=== PATIENT | female | born 2000 | race Caucasian/White ===

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

== ENCOUNTER 2019-04-09 12:37 | Outpatient (REF) | payer OTHER, SELFPAY ==
[2019-04-09 22:09] LABS: Mean Corp. HGB Concentration 31.6 g/dL (32.0-36.0); Mean Corpuscular Hemoglobin 27.8 pg (27.0-33.0); Mean Corpuscular Volume 88.2 fL (80-95); Mean Platelet Volume 10.1 fL (8.0-11.0); Platelet Count 427 x1000/uL (130-400); RBC 4.31 m/cumm (4.00-5.20); RBC Distribution Width 14.3 % (11.7-14.6); White Blood Cell Count 5.32 k/cumm (4.4-10.8)
[2019-04-09 22:34] LABS: ALT 39 U/L (14-59); AST 16 U/L (15-37); Albumin 3.3 g/dL (3.4-5.0); Alkaline Phosphatase 57 U/L (46-116); Anion Gap 10.5 mmol/L (3-11); BUN 11 mg/dL (7-18); Bilirubin, Total 0.3 mg/dL (0.2-1.0); CO2 25.5 mmol/L (21.0-32.0); CREATININE 0.64 mg/dL (0.55-1.02); Calcium 8.7 mg/dL (8.5-10.1); Chloride 105 mmol/L (98-107); Glucose 102 mg/dL (74-106); Magnesium 1.9 mg/dL (1.8-2.4); PHOSPHORUS 4.1 mg/dL (2.6-4.7); Potassium 3.7 mmol/L (3.5-5.1); Sodium 141 mmol/L (136-145); TSH (W/Ref FT4) 1.98 uIU/mL (0.52-4.13); Total Protein 7.2 g/dL (6.4-8.2)
[2019-04-09 23:12] LABS: Vitamin B12 338 pg/mL (193-986)
[2019-04-11 05:54] LABS: Vitamin D 25 Total 23.8 ng/ml (30-100)
== END 2019-04-09 12:57 ==
LOC: NCHCO 12:37
PROVIDERS: PCP Nurse Practitioner Family; Visit Provider Nurse Practitioner Family
DX: F43.21 Adjustment disorder with depressed mood (principal); R40.0 Somnolence; G47.20 Circadian rhythm sleep disorder, unspecified type; E66.01 Morbid (severe) obesity due to excess calories
CPT/HCPCS: 80053; 82306; 85027; 82607; 83735; 84100; 84443

== ENCOUNTER 2021-06-17 14:54 | Outpatient (REF) | payer BC, SELFPAY ==
--- NOTE | 2021-06-17 14:00 | PAPFT_PTH ---
PATIENT: Verónica Alonso LOC: [facility] U#:[id number] AGE/SX: 20/F ROOM: RE06/17/[address]: MICAH Lazaro : 2000 BED: DIS: 06/17/2021 SPEC #: [id number] RECD: 06/17/21 17:58 STATUS: GAURI REChele #: [id number] LYNNETTE: 06/17/21 14:[address]: Rachel Anguiano DEPT: [facility] Cytology RECD BY: Vanna Rivera ENTERED: 06/17/21 17:59 SP TYPE: PAPFT OTHR DR: aYw Hull Tissues: 1 - CX/ENDOCX FOR PAP SMEARS Procedures: PAP THIN PREP/UVM Screening Comments: [id number]
[2021-06-18 15:01] LABS: Chlamydia Result Negative (Negative); GC Result Negative (Negative)
== END 2021-06-17 14:55 | disposition home or self-care (01) ==
LOC: LBN 14:54
PROVIDERS: PCP Nurse Practitioner Family; Visit Provider Nurse Practitioner Family
DX: Z11.3 Encounter for screening for infections with a predominantly sexual mode of transmission (principal); Z12.4 Encounter for screening for malignant neoplasm of cervix
CPT/HCPCS: 87491; 87591; 88142

== ENCOUNTER 2021-09-20 18:40 | Emergency (ER) | payer BC, SELFPAY ==
[2021-09-20] VITALS (26 sets, daily range): BP systolic 111–146; BP diastolic 43–108; PULSE 70–115; RESP 11–27; TEMP 37.1; O2SAT 98–100
--- NOTE | 2021-09-20 18:45 | RT.EKG_ITS ---
APPROVED REPORT Exam: Resting ECG Reason for Exam: passed out Patient Location: E HR:93 bpm ECG Measurements Heart Rate 93 AXIS MO 178 P 63 QRSd 91 QRS 6 QT 352 T 20 QTc 439 Conclusion Sinus rhythm...normal P axis, V-rate 60- 99 Low voltage, precordial leads...precordial leads <1.0mV Physician: no stemi, no [id number]
--- NOTE | 2021-09-20 19:00 | ED.GENADUL_ITS ---
Discharge Plan Disposition Patient Disposition: HOME Condition: Good Discharge Details Clinical Impression: Syncope, Dehydration Primary Care Provider: Yaw Hull ED Provider: Iggy Tobin Home Meds and New Rx's Prescriptions: Continued paroxetine HCl 20 mg tablet 20 mg PO DAILY 0RF norgestimate-ethinyl estradiol [Sprintec (28)] 1 EACH tablet 1 tab-cap PO DAILY Qty: 1 6RF Discharge Instructions Instructions: Syncope (ED) Additional Instructions: At this time your work-up is returned very reassuring. There is no evidence of significant blood clots, cardiac abnormalities, electrolyte abnormalities, or other problems. Your thyroid function is normal. There is no signs of heart strain. Please make sure you are drinking plenty of fluid to stay well- hydrated. Respiratory therapy will contact you tomorrow to help set up an appointment for your Holter monitor. If you notice any worsening of your symptoms, or any new symptoms such as vomiting, diarrhea, fever, chills, shortness of breath, chest pain, numbness, weakness, or fainting , please return immediately to the emergency department for reevaluation. Please follow up with your primary care provider as soon as possible for reassessment and reevaluation. As always, it was a pleasure participating in your medical care today. Referrals: Yaw Hull, [employer] [Primary Care Provider] - Discharge Orders Other Ambulatory Orders: Holter Monitor (Routine) Timeframe: 1 Week Facility: [facility] - Location: Respiratory Therapy Ordered By: Iggy Tobin Medical Decision Making 21-year-old female with a past medical history of acne, BMI over 50, currently on control presents today for evaluation of syncope. Patient states that she was driving in her car, had an episode of a coughing fit, and then about 3 minutes later felt little dizzy (described as a room spinning sensation,) lightheaded, pulled off onto the side of the road, and then woke up about 5 minutes afterwards. She denies any significant headache, chest pain, shortness of breath, numbness, tingling, or weakness. She states that she has not felt normal after this, then went home. Later she did admit to feeling slightly lightheaded when she would stand up or move quickly. Currently the patient is asymptomatic. She states that she may have passed out in the past a few years ago, but otherwise there is no history of syncope. Denies PE risk factors such as recent long car rides, immobilization, recent surgery, prior history of DVT or PE, family history of PE or DVT, morbid obesity, and smoking, hemoptysis, history of cancer. She does admit to not drinking much throughout the day. No other complaints at this time. No other modifying factors. Physical exam demonstrates dry mucous membranes. Mild right-sided horizontal fatigable nystagmus. No neurologic deficits on exam otherwise though. Bedside echo demonstrates normal ejection fractions, no significant abnormalities. Symptoms at this time are most likely consistent with mild vertigo and likely a component of vasovagal syncope after coughing episode, however we will evaluate for other concerning cardiac etiologies. Patient does take oral contraceptives, we will get D-dimer to rule out, monitor closely and reassess. 9:32 PM Patient feeling much better on reassessment. Patient demonstrates a continued normal neurologic assessment. Laboratory work-up is normal. D-dimer normal, troponin normal, thyroid function normal. proBNP normal suggesting no signs of heart strain. No bandemia or left shift. Patient feels well. I suspect her symptoms are likely from a mild vasovagal event from mild dehydration and coughing, however out of an abundance of precaution we will place an order for an outpatient Holter monitor. EKG here tonight shows no evidence of WPW, epsilon wave, or other significant abnormality. Patient stable for discharge. Discussed red flags for which to return. I have extensively reviewed the treatment plan and discharge instructions with the patient and their family. I have addressed all patient concerns at this time. The patient and family was made aware of what symptoms to monitor for that would warrant a return to the emergency department. Discussed the plan with the patient and family, they demonstrate verbal understanding and agreement with our assessment and plan at this time. The documentation in this chart was dictated using [employer] dictation software. Please excuse any dictation errors. HPI General Date/Time Provider Initiated Documentation: 09/20/21 18:43 . HPI Narrative: 21-year-old female with a past medical history of acne, BMI over 50, currently on control presents today for evaluation of syncope. Patient states that she was driving in her car, had an episode of a coughing fit, and then about 3 minutes later felt little dizzy (described as a room spinning sensation,) lightheaded, pulled off onto the side of the road, and then woke up about 5 minutes afterwards. She denies any significant headache, chest pain, shortness of breath, numbness, tingling, or weakness. She states that she has not felt normal after this, then went home. Later she did admit to feeling slightly lightheaded when she would stand up or move quickly. Currently the patient is asymptomatic. She states that she may have passed out in the past a few years ago, but otherwise there is no history of syncope. Denies PE risk factors such as recent long car rides, immobilization, recent surgery, prior history of DVT or PE, family history of PE or DVT, morbid obesity, and smoking, hemoptysis, history of cancer. She does admit to not drinking much throughout the day. No other complaints at this time. No other modifying factors. Related Data Home Medications Medication Instructions Recorded Confirmed norgestimate 0.25 mg-ethinyl 1 tab-cap PO DAILY #1 pack 09/26/17 09/20/21 estradiol 35 mcg tablet (Sprintec (28)) paroxetine HCl 20 mg tablet 20 mg PO DAILY 06/17/21 09/20/21 Previous Rx's Medication Instructions Recorded norgestimate 0.25 mg-ethinyl 1 tab-cap PO DAILY #1 pack 09/26/17 estradiol 35 mcg tablet (Sprintec (28)) Allergies Allergy/AdvReac Type Severity Reaction Status Date / Time amoxicillin Allergy Intermediate drug rash Verified 09/20/21 19:20 General Stated Complaint: Dizzy/Sync MARY: 2 Review of Systems All systems reviewed & are unremarkable except as noted in HPI and below PFSH All Active Problems (Updated 09/20/21 @ 21:34 by Iggy Tobin DO) Syncope (Chronic) Dehydration (Acute) Fracture of metacarpal of right hand, closed (Acute) Severe obesity (BMI >= 40) (Acute 07/28/16) Wellness examination (Acute 11/26/12) Right knee pain (Acute 01/07/15) likely patellofemoral pain Myopia of both eyes with astigmatism (Acute 07/18/16) glasses per [place] Contraception (Acute 10/12/12) Childhood overweight, BMI 85-94.9 percentile (Acute 01/07/15) Medical History (Updated 09/20/21 @ 21:34 by Iggy Tobin DO) Acne 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 Mild unidirectional fatigable right-sided horizontal nystagmus. No vertical or rotatory nystagmus. Negative test of skew. 3.ENT: Atraumatic external nose and ears. Dry MM. Neck: Symmetric, trachea midline, No thyromegaly. 4.CVS: +S1/S2, No murmurs or gallops. Peripheral pulses 2+ and equal in all extremities. Brisk capillary refill in all extremities. 5.RESP: Unlabored respiratory effort. Clear to auscultation bilaterally. No wheezes rales or rhonchi 6.GI: Soft, Nontender/Nondistended, No hepatosplenomegaly. No guarding or rebound. 7.MSK: Normocephalic/Atraumatic, Extremities w/o deformity or ttp No cyanosis or clubbing, Normal movement of all extremities 8.Skin: Warm, Dry. No rashes or lesions. 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 Sensation grossly intact, no focal neurologic deficits. All 6 cardinal planes of vision are fully intact. No evidence of rotatory or vertical nystagmus. The patient demonstrated a normal fngzzo-qzfs-ztzpob, good dexterity. There was no evidence of dysdiadochokinesia. Patient was able to ambulate without difficulty. There was no wide-based gait. Romberg testing was normal. Crmj-hx-vlni testing was normal. Sensation was intact bilaterally as well as muscle strength bilaterally for all extremities. Patient was able to verbalize butter cup with no slurring, or miss pronunciation. 10.Psych: (AAO) x3. Appropriate mood and affect Course Vital Signs Vital signs: Vital Signs Temperature 37.1 C 09/20/21 18:50 Pulse 112 H 09/20/21 18:50 Respiratory Rate 20 09/20/21 18:50 Blood Pressure 146/100 H 09/20/21 18:50 Pulse Oximetry 100 09/20/21 18:50 Temperature 37.1 C 09/20/21 18:50 Temperature Source Temporal Artery Scan 09/20/21 18:50 Pulse 112 H 09/20/21 18:50 Respiratory Rate 20 09/20/21 18:50 Blood Pressure 146/100 H 09/20/21 18:50 Blood Pressure Position Supine 09/20/21 18:50 Pulse Oximetry 100 09/20/21 18:50 Oxygen Delivery Method Room Air 09/20/21 18:50 Oxygen Flow Rate 0 09/20/21 18:50 Pain Level 0 09/20/21 18:50
[2021-09-20] MEDS: Normal Saline 1,000 ML 1000 ML IV (19:14)
[2021-09-20 19:27] LABS: Abs Immature Grans 0.03 10^3/uL (0.0-0.06); Absolute Basophil Count 0.08 10^3/uL (0.0-0.2); Absolute Eosinophil Count 0.24 10^3/uL (0.0-0.7); Absolute Monocyte Count 0.92 10^3/uL (0.1-0.8); Basophils % 0.7; HCT 39.1 % (36.0-46.0); HGB 12.3 g/dL (11.2-15.7); Immature Grans % 0.3; Lymphocytes % 32.5; MCH 27.1 pg (27.0-33.0); MCHC 31.5 % (32.0-36.0); MCV 86 fL (80-95); MPV 10.1 fL (8.0-11.0); Monocytes % 7.8; Neutrophils % 56.7; Platelet Count 360 10^3/uL (130-400); RBC 4.54 10^6/uL (3.93-5.22); RDW 13.8 % (11.7-14.6); RDW-SD 43.3 fL; WBC 11.77 10^3/uL (4.4-10.8)
[2021-09-20 19:35] LABS: Absolute Lymphocyte Count 3.83 10^3/uL (1.2-3.4); Absolute Neutrophil Count 6.67 10^3/uL (1.2-6.7)
[2021-09-20 19:42] LABS: ALT 39 U/L (14-59); AST 17 U/L (15-37); Albumin 3.5 g/dL (3.4-5.0); Alkaline Phosphatase 60 U/L (46-116); Anion Gap 7.9 mmol/L (3-11); BUN 14 mg/dL (7-18); Bilirubin, Total 0.3 mg/dL (0.2-1.0); CO2 28.1 mmol/L (21.0-32.0); CREATININE 0.6 mg/dL (0.55-1.02); Calcium 8.7 mg/dL (8.5-10.1); Chloride 104 mmol/L (98-107); Glucose 95 mg/dL (74-106); NT-proBNP 49 pg/mL (<300); Potassium 3.7 mmol/L (3.5-5.1); Sodium 140 mmol/L (136-145); TSH (W/Ref FT4) 2.18 uIU/mL (0.36-3.74); Troponin I < 50 ng/L (<or=60)
[2021-09-20 20:04] LABS: D-Dimer 246 ng/mlFEU (<500)
== END 2021-09-20 21:56 | disposition home or self-care (01) ==
PROVIDERS: Emergency Provider Student in an Organized Health Care Education/Training Program; PCP Nurse Practitioner Family
DX: E86.0 Dehydration; R55 Syncope and collapse
CPT/HCPCS: 36415; 36416; 80053; 82962; 93005; 96360; 99284; 83880; 84443; 84484; 85025; 85379; 93010

== ENCOUNTER 2021-09-28 02:13 | Outpatient (RCR) | payer BC, SELFPAY ==
--- NOTE | 2021-09-28 13:30 | HOLTER_ITS ---
APPROVED REPORT Conclusion This is a 48-hour Holter monitor ordered for syncope Rhythm throughout was sinus with an average heart rate of 91. Minimum was 58, maximum 145 There were very rare isolated atrial and ventricular ectopic beats There was no atrial fibrillation, no high-grade AV block, no pauses greater than 3 seconds No patient symptoms were reported
== END 2021-10-19 23:59 | disposition home or self-care (01) ==
LOC: RT 02:13
PROVIDERS: PCP Nurse Practitioner Family; Visit Provider Student in an Organized Health Care Education/Training Program
DX: R55 Syncope and collapse (principal)
CPT/HCPCS: 93225; 93226

== ENCOUNTER 2022-05-18 14:02 | Outpatient (REF) | payer OTHER, SELFPAY ==
[2022-05-20 11:45] LABS: COVID-19 RT-PCR UVMMC Result Negative (Negative)
== END 2022-05-18 14:03 | disposition home or self-care (01) ==
LOC: LBN 14:02
PROVIDERS: Visit Provider Physician Assistant Medical
DX: J02.9 Acute pharyngitis, unspecified (principal); Z20.822 Contact with and (suspected) exposure to COVID-19
CPT/HCPCS: U0003; 87081

== ENCOUNTER 2022-08-24 11:48 | Outpatient (CLI) | payer OTHER, SELFPAY ==
[2022-08-24 12:29] LABS: Abs Immature Grans 0.02 10^3/uL (0.0-0.06); Absolute Basophil Count 0.03 10^3/uL (0.0-0.2); Absolute Lymphocyte Count 2.07 10^3/uL (1.2-3.4); Absolute Monocyte Count 0.78 10^3/uL (0.1-0.8); Absolute Neutrophil Count 3.28 10^3/uL (1.2-6.7); Basophils % 0.5; Eosinophils % 1.6; HCT 39.9 % (36.0-46.0); Immature Grans % 0.3; MCH 27.5 pg (27.0-33.0); MCHC 32.6 % (32.0-36.0); MCV 85 fL (80-95); MPV 9.7 fL (8.0-11.0); Monocytes % 12.4; Neutrophils % 52.2; Platelet Count 372 10^3/uL (130-400); RBC 4.72 10^6/uL (3.93-5.22); RDW-SD 43.4 fL; WBC 6.28 10^3/uL (4.4-10.8)
[2022-08-24 12:54] LABS: ALT 85 U/L (14-59); AST 51 U/L (15-37); Albumin 3.3 g/dL (3.4-5.0); Alkaline Phosphatase 59 U/L (46-116); Anion Gap 11.1 mmol/L (3-11); BUN 10 mg/dL (7-18); Bilirubin, Total 0.4 mg/dL (0.2-1.0); CO2 22.9 mmol/L (21.0-32.0); CREATININE 0.7 mg/dL (0.55-1.02); Calcium 8.7 mg/dL (8.5-10.1); Chloride 104 mmol/L (98-107); Estimated GFR 124.55 (mL/min/1.73m2); Glucose 102 mg/dL (74-106); Lipase 22 U/L (16-77); Potassium 3.1 mmol/L (3.5-5.1); Sodium 138 mmol/L (136-145); Total Protein 7.9 g/dL (6.4-8.2)
[2022-08-26 14:39] LABS: COVID-19 RT-PCR UVMMC Result Negative (Negative)
== END 2022-08-24 11:49 | disposition home or self-care (01) ==
LOC: LBO 11:52
PROVIDERS: Visit Provider Physician Assistant Medical
DX: R11.2 Nausea with vomiting, unspecified (principal); Z20.822 Contact with and (suspected) exposure to COVID-19
CPT/HCPCS: 36415; 80053; 83690; U0003; 85025

== ENCOUNTER 2022-09-30 14:54 | Outpatient (REF) | payer OTHER, SELFPAY ==
[2022-09-30 18:58] LABS: Abs Immature Grans 0.03 10^3/uL (0.0-0.06); Absolute Basophil Count 0.05 10^3/uL (0.0-0.2); Absolute Eosinophil Count 0.13 10^3/uL (0.0-0.7); Absolute Lymphocyte Count 2.55 10^3/uL (1.2-3.4); Absolute Neutrophil Count 6.91 10^3/uL (1.2-6.7); Basophils % 0.5; Eosinophils % 1.2; HCT 37.8 % (36.0-46.0); HGB 12.1 g/dL (11.2-15.7); Immature Grans % 0.3; Lymphocytes % 24.4; MCH 27.3 pg (27.0-33.0); MCV 85 fL (80-95); MPV 9.7 fL (8.0-11.0); Monocytes % 7.6; Platelet Count 379 10^3/uL (130-400); RBC 4.44 10^6/uL (3.93-5.22); RDW-SD 43.3 fL; WBC 10.47 10^3/uL (4.4-10.8)
[2022-09-30 19:32] LABS: Hemoglobin A1C 5.6 % (<5.7)
[2022-09-30 19:38] LABS: ALT 34 U/L (14-59); AST 17 U/L (15-37); Albumin 3.4 g/dL (3.4-5.0); Alkaline Phosphatase 62 U/L (46-116); Anion Gap 10.4 mmol/L (3-11); BUN 13 mg/dL (7-18); Bilirubin, Total 0.3 mg/dL (0.2-1.0); CO2 27.6 mmol/L (21.0-32.0); CREATININE 0.7 mg/dL (0.55-1.02); Calcium 8.7 mg/dL (8.5-10.1); Chloride 104 mmol/L (98-107); Estimated GFR 124.55 (mL/min/1.73m2); Glucose 109 mg/dL (74-106); Potassium 3.7 mmol/L (3.5-5.1); Sodium 142 mmol/L (136-145); TSH (W/Ref FT4) 1.93 uIU/mL (0.36-3.74); Total Protein 7.4 g/dL (6.4-8.2)
[2022-09-30 19:52] LABS: Vitamin D 25 Total 17.7 ng/mL (30-100)
== END 2022-09-30 14:55 | disposition home or self-care (01) ==
LOC: NCHCN 14:54
PROVIDERS: Visit Provider Nurse Practitioner Family
DX: R73.03 Prediabetes (principal); E66.8 Other obesity; Z68.44 Body mass index [BMI] 60.0-69.9, adult; F50.81 Binge eating disorder; F41.8 Other specified anxiety disorders; E55.9 Vitamin D deficiency, unspecified
CPT/HCPCS: 80053; 82306; 83036; 84443; 85025

== ENCOUNTER 2023-11-01 13:15 | Outpatient (REF) | payer OTHER, SELFPAY ==
[2023-11-01 15:27] LABS: Hemoglobin A1C 5.6 % (<5.7)
[2023-11-02 10:01] LABS: Hepatitis C Ab w Rflx HCV PCR Negative (Negative)
[2023-11-02 10:24] LABS: HIV-1/2 Ag & Ab Screen Negative (Negative)
[2023-11-02 11:12] LABS: Syphilis Serology (RPR) Negative (Negative)
== END 2023-11-01 13:16 | disposition home or self-care (01) ==
LOC: NCHCN 13:15
PROVIDERS: Visit Provider Nurse Practitioner Family
DX: R73.03 Prediabetes (principal); Z11.3 Encounter for screening for infections with a predominantly sexual mode of transmission; Z11.4 Encounter for screening for human immunodeficiency virus [HIV]; Z11.59 Encounter for screening for other viral diseases
CPT/HCPCS: 86803; 87389; 83036; 86592

== ENCOUNTER 2023-11-06 15:09 | Outpatient (REF) | payer OTHER, SELFPAY ==
[2023-11-07 13:15] LABS: Chlamydia Result Negative (Negative); GC Result Negative (Negative)
== END 2023-11-06 15:10 | disposition home or self-care (01) ==
LOC: NCHCN 15:09
PROVIDERS: Visit Provider Nurse Practitioner Family
DX: Z11.3 Encounter for screening for infections with a predominantly sexual mode of transmission (principal)
CPT/HCPCS: 87491; 87591

== ENCOUNTER 2023-11-29 09:09 | Outpatient (REF) | payer OTHER, SELFPAY ==
[2023-11-30 12:47] LABS: Chlamydia Result Negative (Negative); GC Result Negative (Negative)
== END 2023-11-29 09:10 | disposition home or self-care (01) ==
LOC: LBN 09:09
PROVIDERS: Visit Provider Nurse Practitioner Women's Health
DX: Z11.3 Encounter for screening for infections with a predominantly sexual mode of transmission (principal)
CPT/HCPCS: 87491; 87591

== ENCOUNTER 2024-03-06 18:18 | Emergency (ER) | payer OTHER, SELFPAY ==
[2024-03-06 18:19] VITALS: BP 139/86; PULSE 118; RESP 20; TEMP 36.3; O2SAT 98
--- NOTE | 2024-03-06 18:30 | DI.CT_ITS ---
Exam(s) CT ABDOMEN PELVIS W EXAM: CT ABDOMEN PELVIS W CLINICAL HISTORY: exquisite lower abdominal pain TECHNIQUE: Imaging Protocol: Axial computed tomography images with coronal and sagittal reformatted images were created and reviewed. CONTRAST MATERIAL: Intravenous: Omnipaque 350 Contrast volume:100 mL Oral: No COMPARISON: US US ABDOMEN from 08/25/2022 FINDINGS: Examination limited by patient body habitus. ABDOMEN: Lung Bases: Normal where visualized. Liver: There is decreased attenuation of the liver suggesting fatty infiltration. No measurable mass . Portal, Superior Mesenteric, and Splenic Veins: Unremarkable. Gallbladder and Biliary Tract: No radiodense calculus or dilation. Pancreas: Normal density, no abnormal calcifications or inflammatory process. Spleen: Normal. Adrenals: No masses seen. Kidneys: Normal size, contour and axis. No radiodense stones or obstructive uropathy. No masses seen. Abdominal Aorta: Abdominal portion non-dilated. 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 Bowel: No obstruction or bowel wall thickening. The proximal appendix is visualized and is of normal caliber. No evidence of appendicitis. Peritoneal Cavity: There is a trace amount of free fluid in the cul-de-sac which may be physiologic. No focal fluid collection is seen. There is also small amount of fluid in the right adnexa. No ermelinda e air. Lymph Nodes: Within normal limits. Bones: Within normal limits for the patient's age. Soft Tissues: There is a small fat containing umbilical hernia. PELVIS: Bladder: Symmetric distention, no gross wall thickening. Reproductive Organs: There is an IUD within the uterus. Lymph Nodes: Within normal limits. Bones: Within normal limits for the patient's age. IMPRESSION: 1. Small amount of free fluid in the pelvis and right adnexa. This may be physiologic. If there is clinical concern, a pelvic ultrasound should be obtained. 2. Examination is limited by patient body habitus. 3. The visualized portion of the appendix is visualized and is unremarkable. RADIATION DOSE DELIVERED: 1,972.89mGy.cm Total DLP DATA REPOSITORY: All CT scans at this facility are submitted to the National Radiology Data Registry (NRDR) Dose Index Registry (DIR) with the [employer] (ACR). RADIATION OPTIMIZATION: All CT scans at this facility use at least one of these dose optimization te chniques: automated exposure control; mA and/or kV adjustment per patient size (includes targeted exa ms where dose is matched to clinical indication); or iterative reconstruction.
--- NOTE | 2024-03-06 18:31 | ED.GENADUL_ITS ---
Discharge Plan Disposition Patient Disposition: Home Condition: Stable Discharge Details Clinical Impression: Urinary tract infection Primary Care Provider: Unknown,Unknown ED Provider: Iggy Boothe Home Meds and New Rx's Prescriptions: New cephalexin 500 mg capsule 500 mg PO QID 10 Days Qty: 40 0RF Continued Mirena 21 mcg/24 hr (8 yrs) 52 mg intrauterine device 1 device intrauterine ONCE Rx Instructions: as a single dose lisdexamfetamine [Vyvanse] 10 mg capsule 10 mg PO DAILY Discharge Instructions Instructions: Cephalexin, Urinary Tract Infection, Adult ED Additional Instructions: You were seen in the emergency department for your lower abdominal pain while getting up to go to the bathroom earlier today, your labs are all reassuring for no severe signs of infection or organ dysfunction, your kidney function is normal. There were some nitrites in your urine which is a tell-tale sign of urinary tract infection. I gave you home with doses of the antibiotic to start tonight, and sent a prescription to treat UTI. Please take as directed. Your CT has a lot of interference due to your size but saw no acute pathology- no sign of appendicitis, diverticulitis, small bowel obstruction, kidney stone, or large ovarian cyst. Please use therapeutic dosing of Tylenol (acetamenophen) & Advil (ibuprofen) in an alternating fashion as follows: Take 1000mg of Tylenol every 6 hours without missing doses- that is 4 times per day. [place] in between the Tylenol dosings, take 400-600mg of Advil also on a 6 hour schedule, that is also 4 times per day. The daily maximum dosing of Tylenol is 4000mg, and the daily maximum dosing of Advil is 2400mg. This is safe to do for weeks. Please note that some common cold medications & prescription pain medications may contain acetamenophen and you need to read OTC drug labels and factor that in to maximum daily dosings. Please return for severe increase in pain especially with fever, intractable nausea or vomiting,*changes to your urine or bowel habits or any other emergent concern. Discharge Data Discharge Date/Time-TO BE ENTERED AT DEPARTURE: 03/06/24 22:33 HPI General Date/Time Provider Initiated Documentation: 03/06/24 18:31 . HPI Narrative: 23 year-old female presents to ED today by POV/ambulating with her father with a chief complaint of lower abdominal pain while urinating today- denies dysuria, endorses severe lower abdominal cramping, felt dizzy from pain- states it hurts to stand, sit, walk with onset this afternoon. Quality described as sharp stabbing pain, no radiation to hematuria, bowel changes, chest pain, shortness of breath, nausea/vomiting, endorses having an IUD, denies possibility of , states no history of renal stones, states poor appetite today. Severity is described as 02/28. Palliating factors include nothing specific attempted. Provoking factors include nothing specific. Patient not anticoagulated. Related Data Home Medications ?Medication ?Instructions ?Recorded ?Confirmed levonorgestrel 21 mcg/24 hr (up to 1 device intrauterine ONCE 01/25/24 03/06/24 8 years) 52 mg intrauterine device (Mirena) cephalexin 500 mg capsule 500 mg PO QID UTI 10 days #40 caps 03/06/24 lisdexamfetamine 10 mg capsule 10 mg PO DAILY 03/06/24 03/06/24 (Vyvanse) Previous Rx's ?Medication ?Instructions ?Recorded cephalexin 500 mg capsule 500 mg PO QID UTI 10 days #40 caps 03/06/24 Allergies Allergy/AdvReac Type Severity Reaction Status Date / Time amoxicillin Allergy Intermediate drug rash Verified 03/06/24 18:23 General Stated Complaint: Abd Prob MARY: 3 Review of Systems All systems reviewed & are unremarkable except as noted in HPI and below Exam Narrative Exam Narrative: GENERAL APPEARANCE: Morbid obesity, non-toxic, awake and alert, atraumatic, no acute distress. SKIN: Warm, pink, dry, intact, without rashes/lesions/ulcerations. HEAD: Normocephalic, atraumatic, normal hair distribution for gender/age. EYES: Normal conjunctiva, no exudates on lids/lashes. ENT: Nares patent, no circumoral cyanosis, no facial swelling NECK: Supple, trachea midline, painless cervical ROM. LUNGS/CHEST: Non-labored respirations, normal A/P diameter, symmetrical expansion, no chest wall deformity HEART (CV/PV): Regular rate, R radial pulse 2+, no peripheral edema, no JVD. ABDOMEN: Soft, non-distended, no guarding,diffuse lower abdominal tenderness m ost focal in the suprapubic region, states worse in RLQ versus LLQ, no severe epigastric or upper abdominal tenderness, no CVA tenderness to percussion bilaterally. MSK: Normal ROM, no swelling/deformity to bilateral UEs or LEs, moving all extremities without weakness, no cyanosis, spine midline without tenderness, normal curvature. NEURO: Mental Status AAOx4 - alert to person, place, time, events No facial droop, no forehead involvement. Motor: No focal weakness - strength 5/5 in bilateral UEs and LEs, proximal and distal, symmetric. Sensory: sensation intact to light touch globally. Gait normal: patient ambulated without ataxia into ED room. PSYCH: euthymic, cooperative, pleasant, appropriate speech Course Vital Signs Vital signs: Vital Signs Temperature 36.3 C L 03/06/24 18:19 Pulse 118 H 03/06/24 18:19 Respiratory Rate 20 03/06/24 18:19 Blood Pressure 139/86 03/06/24 18:19 Pulse Oximetry 98 03/06/24 18:19 Temperature 36.3 C L 03/06/24 18:19 Pulse 118 H 03/06/24 18:19 Respiratory Rate 20 03/06/24 18:19 Respiratory Effort Normal 03/06/24 18:24 Blood Pressure 139/86 03/06/24 18:19 Pulse Oximetry 98 03/06/24 18:19 Pain Level 5 03/06/24 18:19 Medical Decision Making This dictation utilizes [id number] dictation software and may contain unedited grammatical errors. 23 year-old female presents to ED today by POV/ambulating with her father with a chief complaint of lower abdominal pain while urinating today- denies dysuria, endorses severe lower abdominal cramping, felt dizzy from pain- states it hurts to stand, sit, walk with onset this afternoon. Quality described as sharp stabbing pain, no radiation to hematuria, bowel changes, chest pain, shortness of breath, nausea/vomiting, endorses having an IUD, denies possibility of , states no history of renal stones, states poor appetite today. Severity is described as 10/10. Palliating factors include nothing specific attempted. Provoking factors include nothing specific. Patients' medical history: Morbid obesity, IUD in place, history of cellulitis of the labia. Fam bhavin and social history: [ ]. Pertinent exam findings / vital signs include diffuse lower abdominal tenderness most focal in the suprapubic region, states worse in RLQ versus LLQ, no severe epigastric or upper abdominal tenderness, benign cardiopulmonary status, no CVA tenderness to percussion bilaterally. Differential / pathologies of concern include IUD migration, endometriosis, PCOS or ovarian cyst pathology, less likely PID, diverticulitis, appendicitis, UTI. Diagnostic studies of: -CBC, CMP, lactate, procalcitonin, lipase, UA, CT ABD/Pelvis w Contrast. -CBC shows no leukocytosis and no anemia -CMP shows no actionable abnormality -Lactate negative, procalcitonin negative-do not suspect sepsis -Lipase negative -UA shows nitrites, will treat for empiric UTI -CT shows no acute pathology, does not visualize the R ovary due to artifact - i question a 2.5cm R ovarian cyst, and there was some scant free fluid seen in the pelvis. Not concerning for possible torsion and patients exam markedly improved with Tylenol and toradol Interventions of: -Tylenol, toradol, Zofran, outpatient Rx for cephalexin. ED Course/Assessment/Plan: 23-year-old female seen in the emergency department had lower abdominal pain when attempting to toilet earlier today, rates the pain as severe but fully improved with Tylenol and Toradol. CT scan has heavy artifact from her body habitus but no overt emergent pathology seen, her labs are very reassuring that there is no perforated viscus or sepsis or biliary tree pathology, on my read I do question a small right ovarian cyst but heavily obscured by artifact, does not have any signs concerning for torsion and her exam is certainly not indicative of torsion. Her urine shows positive for nitrites so I will treat empirically for UTI but I stressed strict return criteria for any worsening or emergent concerns as there is significant artifact in her CT scan, the patient engaged in shared decision-making and was comfortable with this disposition. I question an element of abdominal wall muscle strain with the patients pain being worse with movement. Urine Culture was sent as there was nitrites, pending at discharge. Findings not consistent with perforated viscus, peritoneal abdomen, sepsis, biliary tree pathology, renal dysfunction. Disposition of Urinary Tract Infection. Patient verbalized understanding of the plan and return to ED criteria and engaged in shared decision making. Medical Records Medical records reviewed: Yes I reviewed the patient's medical records. Imaging Data Radiologic Study: Attestation: I personally reviewed and interpreted this imaging study as follows: Imaging: CT Scan Lab Data Lab results reviewed: Yes I reviewed the patient's lab results. Labs: 03/06/24 21:30 Urine - Clean Catch Urine Culture - Pending Laboratory Tests Range/Units 03/06/24 03/06/24 20:18 21:30 WBC (4.4-10.8) 10^3/uL 9.32 RBC (3.93-5.22) 10^6/uL 4.45 Hgb (11.2-15.7) g/dL 12.1 Hct (36.0-46.0) % 38.0 MCV (80-95) fL 85 MCH (27.0-33.0) pg 27.2 MCHC (32.0-36.0) % 31.8 L RDW (11.7-14.6) % 14.5 Plt Count (130-400) 10^3/uL 331 MPV (8.0-11.0) fL 9.6 Immature Gran % % 0.4 Neutrophils % % 59.9 Lymphocytes % % 28.6 Monocytes % % 9.0 Eosinophils % % 1.6 Basophils % % 0.5 Nucleated RBC % (0.0-0.3) % 0.0 Absolute Neutrophils (1.2-6.7) 10^3/uL 5.57 Absolute Lymphocytes (1.2-3.4) 10^3/uL 2.67 Absolute Monocytes (0.1-0.8) 10^3/uL 0.84 H Absolute Eosinophils (0.0-0.7) 10^3/uL 0.15 Absolute Basophils (0.0-0.2) 10^3/uL 0.05 VBG Lactate (0.6-1.4) mmol/L 1.1 Sodium (136-145) mmol/L 140 Potassium (3.5-5.1) mmol/L 4.4 Chloride (98-107) mmol/L 107 Carbon Dioxide (21.0-32.0) mmol/L 24.9 Anion Gap (3-11) mmol/L 8.1 BUN (7-18) mg/dL 9 Creatinine (0.55-1.02) mg/dL 0.6 Est GFR (CKD-EPI 2020) (mL/min/1.73m2) 128.46 Glucose (74-106) mg/dL 88 Calcium (8.5-10.1) mg/dL 8.5 Total Bilirubin (0.2-1.0) mg/dL 0.52 AST (15-37) U/L 34 ALT (14-59) U/L 37 Alkaline Phosphatase (46-116) U/L 60 Total Protein (6.4-8.2) g/dL 7.3 Albumin (3.4-5.0) g/dL 2.9 L Lipase (16-77) U/L 22 Procalcitonin ng/mL < 0.1 Urine Color (Yellow) Yellow Urine Clarity (Clear) Clear Urine pH (5-8) 6.0 Ur Specific [place] (1.005-1.025) 1.025 Urine Protein (Neg-Trace) mg/dL Negative Urine Ketones (Negative) mg/dL Negative Urine Blood (Negative) Negative Urine Nitrite (Negative) Positive H Urine Bilirubin (Negative) Negative Urine Urobilinogen (Up to 0.2) mg/dL 0.2 Ur Leukocyte Esterase (Negative) Negative Urine RBC (0-2) HPF 0-2 Urine WBC (0-5) HPF 3-5 Ur Epithelial Cells (Negative) HPF Few Urine Crystals (Negative) HPF Negative Urine Bacteria (Negative) HPF Many Urine Casts (Negative) LPF Negative Urine Mucus (Negative) Negative Ur Culture Indicated? No Urine Glucose (Negative) mg/dL Negative Quality:SDOH Health Related Social Needs: No Data to Display PFSH All Active Problems (Updated 03/06/24 @ 22:05 by LAVONNE Powers) Urinary tract infection (Acute) IUD (intrauterine device) in place (Acute) Cellulitis of labia (Acute) Fracture of metacarpal of right hand, closed (Acute) Severe obesity (BMI >= 40) (Acute 07/28/16) Wellness examination (Acute 11/26/12) Right knee pain (Acute 01/07/15) likely patellofemoral pain Myopia of both eyes with astigmatism (Acute 07/18/16) glasses per [place] Contraception (Acute 10/12/12) 11/2023. Mirena IUD. 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 Right knee pain Acne Family History Mother Asthma Mental disorder Anxiety Father Mental disorder Depression Other Personal history of malignant neoplasm MGGM- breast CA Grandparent Substance abuse Essential hypertension Hyperlipidemia Mental disorder Asthma Other Healthy adult Social History Smoking/Tobacco Use Status: Current-Occasional Tobacco Type: cigars and e- cigarettes Smoking risk assessment performed?: Yes Alcohol Intake: current Alcohol Intake frequency: holidays/special occasions only Drug use: Rarely Substance use type: marijuana Adopted: No Household members: family and other Details: Parents an dbrother Housing: house current occupation: [employer] in [place]: [employer] Pets and animals: Yes Pets and animals: cat(s) and dog(s) Sexually active: Yes Current gender identity: female Do you feel safe at home: Yes Do you feel safe in your relationship?: Yes Female Reproductive History Menstrual control method: pills History History 0 Para Hx # Term Pregnancies Multiple births Hx # Pregnancies Ectopic pregnancies AB induced Hx Number of Living Children AB spontaneous
--- OUTSIDE RECORDS SUMMARY | 2024-03-06 18:44 | XMS_ITS | Encounter Summary ---
Author Organization [place] [address] Care Team Providers Care L D Rn Name Role Phone Clive Simpson MD Primary Care Provider [phone] Reason for Visit * Reason Comments Weight Management Encounter Details Date Type Department Care Team (Late st Contact Info) Description 01/31/2017 9:15 AM EDT Office Visit Weight and Wellness at [address] [phone] Armando Cárdenas MD [address] [place] [address] [place] [address] Insulin resistance; Abdominal obesity; BMI (body mass index) pediatric, > 99% for age, obese child, tertiary care intervention Social History Tobacco Use Types Packs/Day Years Used Date Smoking Tobacco: Never Sex and Gender Information Value Date Recorded Sex Assigned at Not on file Gender Identity Not on file Sexual Orientation Not on file documented as of this encounter Last Filed Vital Signs Vital Sign Reading Time Taken Comments Blood Pressure 112/74 01/31/2017 9:43 AM EDT Pulse 86 01/31/2017 9:43 AM EDT Temperature - - Respiratory Rate 16 01/31/2017 9:43 AM EDT Oxygen Saturation 100% 01/31/2017 9:43 AM EDT Inhaled Oxygen Concentration - - Weight 151.7 kg (334 lb 7 oz) 01/31/2017 9:43 AM EDT Height 165.9 cm (5' 5.32) 01/31/2017 9:43 AM ED T Body Mass Index 55.12 01/31/2017 9:43 AM EDT Body Mass Index Percentile 100.00% 01/31/2017 9:4 3 AM EDT Growth Chart: CDC (Girls, 2- 20 Years) documented in this encounter Patient Instructions * Patient Instructions* Wilian Montoya, RN - 01/31/2017 9:15 AM EDT [facility] Thank you for participating in the [facility]. The goal of the [facility] clinic is to help children and their families to attain a healthy weight through healthy eating and regular exercise. We will work to treat any medical issues identified for your child. General goals to work on as a family: Aim for 5210 and My Plate (below) recommendations Pick several areas to work on - start small and work up to your final goals Specific goals set today: Media / Activity: Check out the new family media planning tool at the [employer] https://healthychildren.org/Indian/media/pages/default.aspx Diet: Other issues addressed today: Verónica Alonso is at risk for complications of elevated BMI including diabetes, fatty liver and metabolic syndrome.The primarily treatment approach is lifestyle modification to optimize diet and physical activity. We have recommended participation in our intensive lifestyle program along with ongoing medical management. Laboratories have been ordered: No orders of the defined types were placed in this encounter. Measurements taken today: Vitals: 01/31/17 0943 BP: 112/74 Pulse: 86 Resp: 16 SpO2: 100% Weight: (!) 151.7 kg (334 lb 7 oz) Height: 165.9 cm (5' 5.32) >99 %ile based on CDC 2-20 Years BMI-for-age data using vitals from 01/31/2017. BP Readings from Last 3 Encounters: 01/31/17 112/74 10/25/16 123/56 09/27/16 (!) 144/99 Blood pressure percentiles are 48 % systolic and 75 % diastolic based on NHBPEP's 4th Report. Bloodpressure percentile targets: 90: 126/81, 95: 130/85, 99 + 5 mmH/97. Thank you for allowing us to participate in your child's care. We look forward to seeing you and Verónica at our next visit. Gallo Kevin MD MPH Armando Cárdenas MD Co-Directors, [facility], [place] [facility] Obesity Medicine Certified Wilian Montoya RN Registered Nurse documented in this encounter Progress Notes * Armando Cárdenas MD - 01/31/2017 9:15 AM EDT Lipid and Weight Management Program at [facility] Progress note: Patient Active Problem List Diagnosis Code ??? Increased body mass index (BMI) R63.8 ??? Menorrhalgia N94.6 ??? Insulin resistance E88.81 ? ? BMI (body mass index) pediatric, > 99% for age, obese child, tertiary care intervention Z68.54 ??? Childhood obesity, BMI 95-100 percentile E66.9, Z68.54 ??? Sedentary lifestyle Z91.89 ??? Abdominal obesity E65 History: Verónica's last visit was in September. Activity: she has been working in a [employer] - on her feet - 20 hours a week. More walking on weekends. Nutrition changes: no more ice tea, soda. No more late night eating Verónica has no complaints. Outpatient Prescriptions Marked as Taking for the 01/31/17 encounter (Office Visit) with Armando Cárdenas MD Medication Sig Dispense Refill ??? norgestimate-ethinyl estradiol (SPRINTEC-28) 0.25-35 mg-mcg Tablet Take 1 tablet by mouth daily. Indications: Contraception Social history: Here with her mother as informant. Review of systems: The remainder of the 10 point review of systems was negative Physical examination: Well appearing, no distress. Blood pressure 112/74, pulse 86, resp. rate 16, height 165.9 cm (5' 5.32), weight (!) 151.7 kg (334 lb 7 oz), SpO2 100 %. >99 %ile based on CDC 2-20 Years [id number] data using vitals from 01/31/2017. 67 %ile based on CDC 2-20 Years [id number] data using vitals from 01/31/2017. Body mass index is 55.12 kg/(m^2). >99 %ile based on CDC 2-20 Years BMI-for-age data using vitals from 01/31/2017. Blood pressure percentiles are 48 % systolic and 75 % diastolic based on NHBPEP's 4th Report. Bloodpressure percentile targets: 90: 126/81, 95: 130/85, 99 + 5 mmH/97. Lab Results Component Value Date CHLPL 161 09/27/2016 Lab Results Component Value Date HDL 60 09/27/2016 Lab Results Component Value Date LDLCHOL 66 09/27/2016 Lab Results Component Value Date TRIG 174 09/27/2016 Lab Results Component Value Date HA1C 5.4 09/27/2016 No results found for: GLUCFASTING Lab Results Component Value Date ALT 21 09/27/2016 Impression: 1. Insulin resistance 2. Abdominal obesity 3. BMI (body mass index) pediatric, > 99% for age, obese child, tertiary care intervention Wt Readings from Last 3 Encounters: 01/31/17 (!) 151.7 kg (334 lb 7 oz) (>99 %)* 10/25/16 (!) 155.6 kg (343 lb 0.6 oz) (>99 %)* 09/27/16 (!) 155.7 kg (343 lb 4.1 oz) (>99 %)* * Growth percentiles are based on CDC 2-20 Years data. Verónica has made good progress with 9 lbs of weight loss. BMI is down. Overall better food choices. More active in general. PLAN: Continue working to improve food choices and serving size. Try and increase intensity of physical activity. Will obtain fasting labs prior to next visit: No orders of the defined types were placed in this encounter. Follow up in 3 month. This was predominantly a counselling dominated encounter of 25 minutes of which 20 minutes were spent in counseling patient/parents on nutrition, exercise, laboratories and plan. documented in this encounter Plan of Treatment Not on file documented as of this encounter Visit Diagnoses Diagnosis Insulin resistance Dysmetabolic Syndrome X Abdominal obesity Localized adiposity BMI (body mass index) pediatric, > 99% for age, obese child, tertiary care intervention Body Mass Index, pediatric, greater than or equal to 95th percentile for age documented in this encounter Care Teams L D Rn Relationship Specialty Start Date End Date Clive Simpson MD [address] [place] [address] PCP - General Pediatrics 09/27/16 10/04/21 documented as of this encounter
--- OUTSIDE RECORDS SUMMARY | 2024-03-06 18:44 | XMS_ITS | Encounter Summary ---
Author Organization [facility] [place] [address] Care Team Providers Care Accounts Receivable Clerk Name Role Phone Viv Pedraza APRN Primary Care Provider [phone] Encounter Details Date Type Department Care Team (Latest Contact Info) Description 01/09/2023 Travel Social History Tobacco Use Types Packs/Day Years Used Date Smoking Tobacco: Never Sex and Gender Information Value Date Recorded Sex Assigned at Not on file Gender Identity Not on file Sexual Orientation Not on file documented as of this encounter Plan of Treatment Not on file documented as of this encounter Visit Diagnoses Not on filedocumented in this encounter Care Teams Accounts Receivable Clerk Relationship Specialty Start Date End Date Viv Pedra[place] [address] [place] [address] PCP - General Family Medicine 12/22/22 documented as of this encounter
--- OUTSIDE RECORDS SUMMARY | 2024-03-06 18:44 | XMS_ITS | Clinical Summary ---
Author Organization [facility] Address [address] [place] [address] Care Team Providers Care Director Of Front Office Name Role Phone Unavailable Primary Care Provider Unavailabl e Social History Tobacco Use Types Packs/Day Years Used Date Smoking Tobacco: Never Assessed Sex and Gender Information Value Date Recorded Sex Assigned at Not on file Gender Identity Not on file Sexual Orientation Not on file Plan of Treatment Health Maintenance Due Date Last Done Comments Hepatitis B Vaccine (1 of 3 - 19+ 3-dose series) 07/13 COVID-19 Vaccine (2022- season) 2023 Hepatitis C Screen Completed 11/01/2023 Procedures Procedure Name Priority Date/Time Associated Diagnosis Comments HEPATITIS C AB W REFLEX TO HCV RNA BY PCR Routine 11/01/2023 11:15 EDT from Last 3 Months or Most Recently Relevant to Health Maintenance Results * HEPATITIS C AB W REFLEX TO HCV RNA BY PCR (11/01/2023 11:15 EDT) Hep C Antibody Negative Negative 11/02/2023 9:57 EDT [facility] Blood VENOUS BLOOD / Unknown 11/01/2023 11:15 EDT 11/01/2023 21:17 EDT Provider Outr Resulting Lab CHEMISTRY & BLOOD GAS ORDERABLES [facility] [address] [place] [address] from Last 3 Months or Most Recently Relevant to Health Maintenance
--- OUTSIDE RECORDS SUMMARY | 2024-03-06 18:44 | XMS_ITS | Clinical Summary ---
Author Organization [facility] Address [address] [facility] [address] Care Team Providers Care Wire Drawing Machine Operator Name Role Phone Viv Pedraza APRN Primary Care Provider [phone] Allergies Active Allergy Reactions Criticality Noted Date Comments Amoxicillin Rash High 09/27/2016 Full body rash. Medications Medication Sig Dispensed Refills Start Date End Date Status norgestimate-ethinyl estradiol (SPRINTEC-28) 0.25-35 mg-mcg TabletIndications:pr egnancy contraception Take 1 tablet by mouth daily. Indications: Contraception Active Active Problems Problem Noted Date Diagnosed Date Insulin resistance 09/27/2016 BMI (body mass index) pediat franchesca, > 99% for age, obese child, tertiary care intervention 09/27/2016 Childhood obesity, BMI 95-100 percentile 017 Sedentary lifestyle 09/27/2016 Abdominal obesity 09/27/2016 Increased body mass index (BMI) 01/07/2015 Menorrhalgia Family History Medical History Relation Comments Polycystic Ovarian Syndrome Maternal Aunt Hyperlipidemia Maternal Grandfather Thyroid Disease Maternal Grandmother Obesity Mother Coronary Artery Disease Paternal Grandfather Cirrhosis Neg Hx Nonalcoholic Liver Disease Neg Hx Pre-diabetes Neg Hx Type 2 Diabetes Neg Hx Relation Status Comments Maternal Aunt Maternal Grandfather Maternal Grandmother Mother Paternal Grandfather Social History Tobacco Use Types Packs/Day Years Used Date Smoking Tobacco: Never Sex and Gender Information Value Date Recorded Sex Assigned at Not on file Gender Identity Not on file Sexual Orientation Not on file Last Filed Vital Signs Vital Sign Reading [...] Mass Index 55.12 01/31/2017 9:43 AM EDT Plan of Treatment Health Maintenance Due Date Last Done Comments Chlamydia Screening 2014 HPV vaccine (1 - 3-dose series) 2014 HIV screen 2017 Hepatitis C Screening 2017 Hepatitis B vaccine (0-59 yrs) (1) 2018 Tetanus/Diphtheria/Pertussis Vaccines (1 - Tdap) 07/13 PAP Smear 2020 Covid-19 Vaccine (1 - 2022- season) 2024 Influenza (Flu) vaccine (1 o f 1 - Influenza standard series) 01/21/2024 Lipid Screening Discontinued 09/27/2016 Procedures Procedure Name Priority Date/Time Associated Diagnosis Comments LIPID PANEL (REFLEX DIRECT LDL) Routine 09/27/2016 12:37 PM EDT Insulin resistance Abdominal obesity BMI (body mass index) pediatric, > 99% for age, obese child, tertiary care intervention Childhood obesity, BMI 95-100 percentile Sedentary lifestyle from Last 3 Months or Most Recently Relevant to Health Maintenance Results * Lipid Panel (09/27/2016 12:37 PM EDT) Cholesterol, Total 161 <=239 mg/dL [facility] Triglyceride 174 <=199 mg/dL [facility] HDL Cholesterol 60 >=40 mg/dL [facility] LDL Cholesterol 66 <=190 mg/dL [facility] Cholesterol/HDL Ratio 2.7 ratio [facility] Lipid Interpretation See Note [facility] Comment: Lipid management should be guided by a patient? s ASCVD risk, goals and preferences. ACC/AHA Guidelines recommend high intensity statin if clinical ASCVD or LDL greater than or equal to 190 mg/dL. http://tinyurl.com/VED-FDV-Rcbadipit Adults aged 40-75 with LDL 70-189 mg/dL should have their 10 year ASCVD risk estimated with the ACC/AHA ASCVD risk body shop estimator http://tools.acc.org/PLEGB-Fdbu-Dqgdaybyb/ Statin should be discussed if risk greater than or equal to 7.5% in non-diabetics. With diabetes, moderate intensity statin is recommended if risk less than 7.5%, high intensity if risk greater than or equal to 7.5%. Annual lipid monitoring on statins is not necessary. Evaluate secondary causes of Triglycerides greater than 500 mg/dL or LDL greater than 190 mg/dL: See table 6 of ACC/AHA Guideline. Lifestyle modification is a critical component of ASCVD risk reduction. Blood specimen (specimen) 09/27/2016 12:37 PM EDT 09/27/2016 3:28 PM EDT Narrative Resulting Agency Comment Spec In Lab Armando Cárdenas MD CHEMISTRY ORDERABLES Performing Organization Address City/State/[facility] Co de Phone Number [facility] [place] [address] from Last 3 Months or Most Recently Relevant to Health Maintenance Care Teams Wire Drawing Machine Operator Relationship Specialty Start Date End Date Viv Pedraza [place] [place] [address] PCP - General Family Medicine 12/22/22
--- OUTSIDE RECORDS SUMMARY | 2024-03-06 18:44 | XMS_ITS | Encounter Summary ---
Author Organization [facility] Address [address] [place] [address] Care Team Providers Care Car Ferrier Name Role Phone Unavailable Primary Care Provider Unavailabl e Encounter Details Date Type Department Care Team (Late st Contact Info) Description 11/01/2023 Lab Requisition [facility] Pathology & Laboratory Medicine - [facility] [address] [place] [address] Outr Resulting Lab, Provider Social History Tobacco Use Types Packs/Day Years Used Date Smoking Tobacco: Never Assessed Sex and Gender Information Value Date Recorded Sex Assigned at Not on file Gender Identity Not on file Sexual Orientation Not on file documented as of this encounter Plan of Treatment Not on file documented as of this encounter Procedures Procedure Name Priority Date/Time Associated Diagnosis Comments SYPHILIS SEROLOGY Routine 11/01/2023 11: 15 EDT HEPATITIS C AB W REFLEX TO HCV RNA BY PCR Routine 11/01/2023 11:15 EDT documented in this encounter Results * SYPHILIS SEROLOGY (11/01/2023 11:15 EDT) Syphilis Serology Negative Negative 11/02/2023 11:07 EDT [facility] Blood VENOUS BLOOD / Unknown 11/01/2023 11:15 EDT 11/01/2023 21:17 EDT Provider Outr Resulting Lab IMMUNOLOGY A ND SEROLOGY ORDERABLES [facility] [address] [place], [place] [address] * HEPATITIS C AB W REFLEX TO HCV RNA BY PCR (11/01/2023 11:15 EDT) Hep C Antibody Negative Negative 11/02/2023 9:57 EDT [facility] Blood VENOUS BLOOD / Unknown 11/01/2023 11:15 EDT 11/01/2023 21:17 EDT Provider Outr Resulting Lab CHEMISTRY & BLOOD GAS ORDERABLES [facility] [address] [place], [place] [id number] documented in this encounter Visit Diagnoses Not on filedocumented in this encounter
--- OUTSIDE RECORDS SUMMARY | 2024-03-06 18:44 | XMS_ITS | Encounter Summary ---
Author Organization [facility] [place] [address] Care Team Providers Care Special Deputy Sheriff Name Role Phone Clive Simpson MD Primary Care Provider [phone] Reason for Visit * Reason Onset Date Comments Referral 08/29/2016 Encounter Details Date Type Department Care Team (Late st Contact Info) Description 08/29/2016 Telephone Weight and Wellness at [address] [phone] Gallo Kevin MD [facility] [place] [address] Referral Social History Tobacco Use Types Packs/Day Years Used Date Smoking Tobacco: Never Assessed Sex and Gender Information Value Date Recorded Sex Assigned at Not on file Gender Identity Not on file Sexual Orientation Not on file documented as of this encounter Miscellaneous Notes * Telephone Encounter - Gallo Kevin MD - 09/15/2016 8:48 PM EDT [facility] Referral Note Name: Verónica Alonso MR: [id number] : 2000 Age: 16 y.o. 2 m.o. PCP:Clive Forrester MD (Inactive) CREDENTIALING ASSISTANT:No primary care provider on file. Note to scheduling: [ ] scanned labs available for review DiIAGNOSIS / CONCERN: SCHEDULING- PROVIDER: [ ] Hyperlipidemia without elevated BMI: [ ] Melia [ ] Andressa [ ] Either [x ] Elevated BMI +/- comorbidities: [ ] Melia [ ] Kevin [x ] Either Additional information: Hi Donavan - PCP note indicates labs were done in 2013 - could we get these faxed and entered thanks! * Telephone Encounter - Tanner Juan - 08/29/2016 8:58 AM EDT Family is waiting to have blood work done until meeting with a specialist. documented in this encounter Plan of Treatment Not on file documented as of this encounter Visit Diagnoses Not on filedocumented in this encounter Care Teams Special Deputy Sheriff Relationship Specialty Start Date End Date Clive Simpson MD [address] [address] PCP - General Pediatrics 09/27/16 10/04/21 documented as of this encounter
--- OUTSIDE RECORDS SUMMARY | 2024-03-06 18:44 | XMS_ITS | Encounter Summary ---
Author Organization [facility] Address [address] [place] [address] Care Team Providers Care Dispensing Operator Name Role Phone Unavailable Primary Care Provider Unavailabl e Encounter Details Date Type Department Care Team (Late st Contact Info) Description 08/25/2022 Lab Requisition [facility] Pathology & Laboratory Medicine - [facility] [address] [place] [address] Outr Resulting Lab, Provider Social History Tobacco [...] Procedure Name Priority Date/Time Associated Diagnosis Comments ZZCOVID-19 TEST [facility] PCR Today 08/24/2022 11:15 EDT COVID-19 TESTING Routine 08/24/2022 11:1 5 EDT documented in this encounter Results * COVID-19 TEST [facility] PCR (08/24/2022 11:15 EDT) Swab ENTIRE NASOPHARYNX / Unknown 08/24/2022 11:15 EDT 08/25/2022 17:18 EDT Provider Outr Resulting Lab MICROBIOLOGY - GENERAL ORDERABLES [facility] [address] [place] [address] * COVID-19 TESTING (08/24/2022 11:15 EDT) COVID-19 rt-PCR Result Negative Negative 08/26/2022 14:33 EDT [facility] Comment: This test has not been FDA cleared or approved. This test has been authorized by FDA under an EUA for use by authorized laboratories. This test has been authorized only for detection of nucleic acid from 2019-nCoV, not for any other viruses or pathogens. This test is only authorized for the duration of the declaration that circumstances exist justifying the authorization of emergency use of in vitro diagnostic tests for detection and/or diagnosis of 2019-nCoV under section 564(b)(1) of Act, 21 U.S.C ?? 360bbb-3(b) (1), unless the authorization is terminated or revoked sooner. Negative results do not preclude 2019-nCoV infection and should not be used as the sole basis for treatment or other patient management decisions. Negative results must be combined with clinical observations, patient history, and epidemiological information. Performed on the [employer] Fusion instrument Performing Lab [place] [facility] 08/26/2022 14:33 EDT [facility] Swab ENTIRE NASOPHARYNX / Unknown 08/24/2022 11:15 EDT 08/25/2022 17:18 EDT Provider Outr Resulting Lab MICROBIOLOGY - GENERAL ORDERABLES [facility] [address] [place] [address] documented in this encounter Visit Diagnoses Not on filedocumented in this encounter
--- OUTSIDE RECORDS SUMMARY | 2024-03-06 18:44 | XMS_ITS | Encounter Summary ---
Author Organization [facility] Address [address] [place] [address] Care Team Providers Care Post Tensioning Ironworker Helper Name Role Phone Unavailable Primary Care Provider Unavailabl e Encounter Details Date Type Department Care Team (Late st Contact Info) Description 11/06/2023 Lab Requisition [facility] Pathology & Laboratory Medicine - [address] [address] Outr Resulting Lab, Provider Social History Tobacco [...] Procedure Name Priority Date/Time Associated Diagnosis Comments CHLAMYDIA/N. GONORRHOEAE AMPLIFIED NUCLEIC ACID Routine 11/06/2023 11:00 EDT documented in this encounter Results * CHLAMYDIA/N. GONORRHOEAE AMPLIFIED RNA (11/06/2023 11:00 EDT) Neisseria gonorrhoeae Result Negative Negative 11/07/2023 13:10 EDT [facility] Chlamydia trachomatis Result Negative Negative 11/07/2023 13:10 EDT [facility] Urine URINE / Unknown 11/06/2023 1 1:00 EDT 11/06/2023 22:09 EDT Narrative [facility] - 11/07/2023 13:10 EDT A first catch urine specimen is acceptable for detection of Gonorrhea and Chlamydia, but might detect up to 10% fewer infections when compared with vaginal and endocervical swab samples. Provider Outr Resulting Lab MICROBIOLOGY - GENERAL ORDERABLES [facility] [address] [place] [address] documented in this encounter Visit Diagnoses Not on filedocumented in this encounter
--- OUTSIDE RECORDS SUMMARY | 2024-03-06 18:44 | XMS_ITS | Encounter Summary ---
[facility] [place] [address] Care Team Providers Care Pump Runner Name Role Phone Clive Simpson MD Primary Care Provider [phone] Encounter Details Date Type Department Care Team (Late st Contact Info) Description 10/25/2016 10:30 AM EDT - 10/25/2016 11:59 PM EDT Hospital [place] [phone] Armando Cárdenas MD [address] [place] [address] [place] [address] Insulin resistance; Abdominal obesity; BMI (body mass index) pediatric, > 99% for age, obese child, tertiary care intervention; Childhood obesity, BMI 95-100 percentile; Sedentary lifestyle Discharge Disposition: Home Social History Tobacco Use Types Packs/Day Years Used Date Smoking Tobacco: Never Sex and Gender Information Value Date Recorded Sex Assigned at Not on file Gender Identity Not on file Sexual Orientation Not on file documented as of this encounter Medications at Time of Discharge Medication Sig Dispensed Refills Start Date End Date norgestimate-ethinyl estradiol (SPRINTEC-28) 0.25-35 mg-mcg TabletIndications:pregna ncy contraception Take 1 tablet by mouth daily. Indications: Contraception documented as of this encounter Plan of Treatment Not on file documented as of this encounter Procedures Procedure Name Priority Date/Time Associated Diagnosis Comments US ABDOMEN COMPLETE Routine 10/25/2016 1 1:11 AM EDT Insulin resistance Abdominal obesity BMI (body mass index) pediatric, > 99% for age, obese child, tertiary care intervention Childhood obesity, BMI 95-100 percentile Sedentary lifestyle documented in this encounter Results * US Abdomen Complete (10/25/2016 11:11 AM EDT) Anatomical Region Laterality Modality Abdomen, Vascular Ultrasound 10/25/2016 10:3 2 AM EDT Impressions 10/25/2016 11:25 AM EDT ??1. Diffusely increased echotexture to the liver. No focal lesions seen. Findingsconsistent with diffuse fatty infiltration of the liver.2. Otherwise normal appearing abdominal ultrasound. Small splenule is notedwithin the hilum of the spleen.3. Normal caliber abdominal aorta and IVC. ? Quita Hamilton MD Electronically Signed Final Report ?? 10/25/2016 11:24 am Narrative 10/25/2016 11:25 AM EDT Pediatric Abdomen ? (Signed Final 10/25/2016 11:24 am) PATIENT INFO: ID #: ? [id number] ?: ??[birth year] (16 yrs) Name: ? VERÓNICA OGDEN ? Visit Date: 10/25/2016 10:32 am PERFORMED BY: Performed By: ? Sakina Spence RDMS Attending: ?Alfonso HOGAN, Quita Moreno. Referred By: ?ARMANDO CÁRDENAS Location: ? [place] SERVICE(S) PROVIDED: ??[facility] - Abdominal Complete Survey - [id number] INDICATIONS: ??fatty liver Scan Quality: ?? Limited due to patient body habitus ------ LIVER: ------ Right Lobe Length: ?? 16.0 ?? cm Echogenicity/Echotexture: ?? Echogenic GALLBLADDER: Cholelithiasis: ?No stones visualized Wall Thickness: ?2.8 mm Focal Tenderness: ?Negative Stovall's sign BILIARY TRACT: Intrahepatic Ducts: ?? Normal Extrahepatic Ducts: ?? Normal Common Duct Size: ? 5.0 ? mm --------- PANCREAS: --------- Head: ? Limited views due to overlying bowel Tail: ? Poorly visualized due to overlying bowel Body: ? Limited visualization due to overlying ? bowel ------- SPLEEN: ------- Size (cm) ?L: ??11.4 ?AP: ??3.7 ? TV: ??3.4 Vol (ml): ?75.1 Comment: ?Normal appearance RIGHT KIDNEY: ??Date ? L(cm) ?AP(cm) ?TV(cm) ?Vol ??10/25/16 ? 12.6 Hydronephrosis: ?? No sonographic evidence LEFT KIDNEY: ??Date ? L(cm) ?AP(cm) ?TV(cm) ?Vol ??10/25/16 ? 13.5 Hydronephrosis: ?? No sonographic evidence ------ AORTA: ------ Measurements (cm): Proximal ? AP: ?? 1.9 Mid ?AP: ?? 1.9 Distal ? AP: ?? 1.9 Comment: ?Normal in caliber where visualized ---- IVC: ---- Normal in caliber where visualized Procedure Note Quita Hamilton MD - 10/25/2016 Pediatric Abdomen (Signed Final 10/25/2016 11:24 am) PATIENT INFO: ID #: [id number] : [birth year] (16 yrs) Name: VERÓNICA OGDEN Visit Date: 10/25/2016 10:32 am PERFORMED BY: Performed By: Sakina Spence RDMS Attending: Quita Hamilton MD Referred By: ARMANDO CÁRDENAS Location: [place] SERVICE(S) PROVIDED: [facility] - Abdominal Complete Survey - [id number] INDICATIONS: fatty liver Scan Quality: Limited due to patient body habitus ------ LIVER: ------ Right Lobe Length: 16.0 cm Echogenicity/Echotexture: Echogenic GALLBLADDER: Cholelithiasis: No stones visualized Wall Thickness: 2.8 mm Focal Tenderness: Negative Stovall's sign BILIARY TRACT: Intrahepatic Ducts: Normal Extrahepatic Ducts: Normal Common Duct Size: 5.0 mm --------- PANCREAS: --------- Head: Limited views due to overlying bowel Tail: Poorly visualized due to overlying bowel Body: Limited visualization due to overlying bowel ------- SPLEEN: ------- Size (cm) L: 11.4 AP: 3.7 TV: 3.4 Vol (ml): 75.1 Comment: Normal appearance RIGHT KIDNEY: Date L(cm) AP(cm) TV(cm) Vol 10/25/16 12.6 Hydronephrosis: No sonographic evidence LEFT KIDNEY: Date L(cm) AP(cm) TV(cm) Vol 10/25/16 13.5 Hydronephrosis: No sonographic evidence ------ AORTA: ------ Measurements (cm): Proximal AP: 1.9 Mid AP: 1.9 Distal AP: 1.9 Comment: Normal in caliber where visualized ---- IVC: ---- Normal in caliber where visualized IMPRESSION 1. Diffusely increased echotexture to the liver. No focal lesions seen. Findingsconsistent with diffuse fatty infiltration of the liver.2. Otherwise normal appearing abdominal ultrasound. Small splenule is notedwithin the hilum of the spleen.3. Normal caliber abdominal aorta and IVC. Quita Hamilton MD Electronically Signed Final Report 10/25/2016 11:24 am Armando Cárdenas MD IMG US GEN ORDERABLE S documented in this encounter Visit Diagnoses Diagnosis Insulin resistance Dysmetabolic Syndrome X Abdominal obesity Localized adiposity BMI (body mass index) pediatric, > 99% for age, obese child, tertiary care intervention Body Mass Index, pediatric, greater than or equal to 95th percentile for age Childhood obesity, BMI 95-100 percentile Obesity, unspecified Sedentary lifestyle Other specified personal history presenting hazards to health documented in this encounter Care Teams Pump Runner Relationship Specialty Start Date End Date Clive Simpson MD [address] [place] [address] PCP - General Pediatrics 09/27/16 10/04/21 documented as of this encounter
--- OUTSIDE RECORDS SUMMARY | 2024-03-06 18:44 | XMS_ITS | Referral Summary ---
Author Organization [facility] Address [address] [place] [address] Care Team Providers Care Newspaper Correspondent Name Role Phone Unavailable Primary Care Provider Unavailabl e Social History Tobacco Use Types Packs/Day Years Used Date Smoking Tobacco: Never Assessed Sex and Gender Information Value Date Recorded Sex Assigned at Not on file Gender Identity Not on file Sexual Orientation Not on file Plan of Treatment Not on file Procedures Procedure Name Priority Date/Time Associated Diagnosis Comments HEPATITIS C AB W REFLEX TO HCV RNA BY PCR Routine 11/01/2023 11:15 EDT from Last 3 Months or Most Recently Relevant to Health Maintenance Results * HEPATITIS C AB W REFLEX TO HCV RNA BY PCR (11/01/2023 11:15 EDT) Hep C Antibody Negative Negative 11/02/2023 9:[address] [facility] Blood VENOUS BLOOD / Unknown 11/01/2023 11:15 EDT 11/01/2023 21:17 EDT Provider Outr Resulting Lab CHEMISTRY & BLOOD GAS ORDERABLES [facility] [address] [place] [address] from Last 3 Months or Most Recently Relevant to Health Maintenance
--- OUTSIDE RECORDS SUMMARY | 2024-03-06 18:44 | XMS_ITS | Encounter Summary ---
Author Organization [facility] Address [address] [place] [address] Care Team Providers Care Filling Carrier Name Role Phone Unavailable Primary Care Provider Unavailabl e Encounter Details Date Type Department Care Team (Late st Contact Info) Description 06/18/2021 Lab Requisition [facility] Pathology & Laboratory Medicine - [facility] [address] [place] [address] [address] [place] [address] Encounter for other general examination Social History Tobacco Use Types Packs/Day Years Used Date Smoking Tobacco: Never Assessed Sex and Gender Information Value Date Recorded Sex Assigned at Not on file Gender Identity Not on file Sexual Orientation Not on file documented as of this encounter Plan of Treatment Not on file documented as of this encounter Procedures Procedure Name Priority Date/Time Associated Diagnosis Comments PAP TEST Today 06/17/2021 14:00 EST Encounter for other general examination documented in this encounter Results * PAP TEST (06/17/2021 14:00 EST) Specimens A. Cervix and/or Endocervix , ThinPrep Imaging System with Manual Evaluation 06/25/2021 14:27 [facility] Specimen Adequacy Satisfactory for Evaluation - transformation zone component present 06/25/2021 14:27 EST [facility] General Categorization Negative for intraepithelial lesion or malignancy 06/25/2021 14:27 [facility] Attestation . 06/25/2021 14:27 [facility] at 1427 Clinical History SEE BELOW 06/25/19 14:27 [facility] Performing Lab [facility] 06/25/2021 14:27 EST [facility] Scanned Images 06/25/2021 14:27 EST [facility] Papanicolaou smear specimen (specimen) CERVIX UTERI STRUCTURE / Unknown 06/17/2021 14:00 EST 06/18/2021 13:10 EST Rachel Anguiano HOUSEKEEPING DIRECTOR PATHOLOGY ORDERABLES Performing Organization Address City/State/[facility] Co de Phone Number [facility] [address] [place] [address] documented in this encounter Visit Diagnoses Diagnosis Encounter for other general examination documented in this encounter
--- OUTSIDE RECORDS SUMMARY | 2024-03-06 18:44 | XMS_ITS | Encounter Summary ---
Author Organization [facility] Address [address] [place] [address] Care Team Providers Care Outdoor Adventure Guides Name Role Phone Unavailable Primary Care Provider Unavailabl e Encounter Details Date Type Department Care Team (Late st Contact Info) Description 05/19/2022 Lab Requisition [facility] Pathology & Laboratory Medicine - [facility] [address] [place] [address] Outr Resulting Lab, Provider Social History Tobacco [...] Priority Date/Time Associated Diagnosis Comments ZZCOVID-19 TEST [facility] PCR Today 05/18/2022 10:06 EST COVID-19 TESTING Routine 05/18/2022 10:0 6 EST documented in this encounter Results * COVID-19 TEST [facility] PCR (05/18/2022 10:06 EST) Swab 05/18/2022 10:0 6 EST 05/19/2022 17:12 EST Provider Outr Resulting Lab MICROBIOLOGY - GENERAL ORDERABLES [facility] [address] [place] [address] * COVID-19 TESTING (05/18/2022 10:06 EST) COVID-19 rt-PCR Result Negative Negative 05/20/2022 11:40 EST [facility] Comment: This test has [...] clinical observations, patient history, and epidemiological information. Testing was performed using the elijah SARS-CoV-2 assay ([employer] on the Elijah 6800 System Performing Lab Elijah 6800 [facility] Lab 05/20/2022 11:40 EST [facility] Swab 05/18/2022 10:0 6 EST 05/19/2022 17:12 EST Provider Outr Resulting Lab MICROBIOLOGY - GENERAL ORDERABLES [facility] [address] [place] [address] documented in this encounter Visit Diagnoses Not on filedocumented in this encounter
--- OUTSIDE RECORDS SUMMARY | 2024-03-06 18:44 | XMS_ITS | Encounter Summary ---
Author Organization [facility] Address [address] [place] [address] Care Team Providers Care Riding Double Name Role Phone Unavailable Primary Care Provider Unavailabl e Encounter Details Date Type Department Care Team (Late st Contact Info) Description 06/17/2021 Lab Requisition [facility] Pathology & Laboratory Medicine - [facility] [address] [place] [address] Outr Resulting Lab, Provider Social History Tobacco [...] Comments CHLAMYDIA/N. GONORRHOEAE AMPLIFIED NUCLEIC ACID Routine 06/17/2021 14:00 EST documented in this encounter Results * CHLAMYDIA/N. GONORRHOEAE AMPLIFIED RNA (06/17/2021 14:00 EST) Neisseria gonorrhoeae Result Negative Negative 06/18/2021 14:55 EST [facility] Chlamydia trachomatis Result Negative Negative 06/18/2021 14:55 EST [facility] Swab ENTIRE WALL OF CERVIX / Unknown 06/17/2021 14:00 EST 06/17/2021 22:42 EST Provider Outr Resulting Lab MICROBIOLOGY - GENERAL ORDERABLES [facility] [address] [place] [address] documented in this encounter Visit Diagnoses Not on filedocumented in this encounter
--- OUTSIDE RECORDS SUMMARY | 2024-03-06 18:44 | XMS_ITS | Encounter Summary ---
Author Organization [facility] Address [address] [place] [id number] Care Team Providers Care Mainspring Former Name Role Phone Unavailable Primary Care Provider Unavailabl e Encounter Details Date Type Department Care Team (Late st Contact Info) Description 11/01/2023 Lab Requisition [facility] Pathology & Laboratory Medicine - [facility] [address] [place] [address] Outr Resulting Lab, Provider Social History Tobacco [...] Procedure Name Priority Date/Time Associated Diagnosis Comments HIV 1/2 ANTIGEN AND ANTIBODY, 4TH GENERATION Routine 11/01/2023 11:15 EDT documented in this encounter Results * HIV 1/2 ANTIGEN AND ANTIBODY, 4TH GENERATION (11/01/2023 11:15 EDT) HIV 1 and 2 Antibody/p24 Antigen, 4th Generation Negative Negative 11/02/2023 10:18 EDT [facility] Comment:If acute HIV-1 infec tion is suspected in a high risk patient, submit plasma specimen for HIV-1 RNA quantitation test. Blood VENOUS BLOOD / Unknown 11/01/2023 11:15 EDT 11/01/2023 21:17 EDT Narrative [facility] - 11/02/2023 10:18 EDT Fourth Generation assay performed on the Siemens Centaur XPT. Provider Outr Resulting Lab IMMUNOLOGY A ND SEROLOGY ORDERABLES [facility] [address] [place] [address] documented in this encounter Visit Diagnoses Not on filedocumented in this encounter
--- OUTSIDE RECORDS SUMMARY | 2024-03-06 18:44 | XMS_ITS | Encounter Summary ---
Author Organization [facility] [place] [address] Care Team Providers Care Respiratory Care Program Director Name Role Phone Clive Simpson MD Primary Care Provider [phone] Reason for Visit * Reason Comments Weight Management mom = Mignon Encounter Details Date Type Department Care Team (Late st Contact Info) Description 10/25/2016 11:30 AM EDT Office Visit [facility] and Wellness at [facility] [address] [place] [address] Mojgan Domingo I, RD [facility] [place] [address] Dietary counseling and surveillance Social History Tobacco Use Types Packs/Day Years Used Date Smoking Tobacco: Never Sex and Gender Information Value Date Recorded Sex Assigned at Not on file Gender Identity Not on file Sexual Orientation Not on file documented as of this encounter Last Filed Vital Signs Vital Sign Reading Time Taken Comments Blood Pressure 123/56 10/25/2016 11:49 AM EDT Pulse 68 10/25/2016 11:49 AM EDT Temperature - - Respiratory Rate 16 10/25/2016 11:4 9 AM EDT Oxygen Saturation 100% 10/25/2016 11: 49 AM EDT Inhaled Oxygen Concentration - - Weight 155.6 kg (343 lb 0.6 oz) 017 11:49 AM EDT Height 165.5 cm (5' 5.16) 10/25/2016 1 1:49 AM EDT Body Mass Index 56.81 10/25/2016 11:49 AM EDT Body Mass Index Percentile 100.00% 10/25 11:49 AM EDT Growth Chart: CDC (Girls, 2- 20 Years) documented in this encounter Patient Instructions * Patient Instructions* Wilian Montoya RN - 10/25/2016 11:30 AM EDT Nutrition Goals: 1. Aim for protein at all meals - beans and eggs 2. Aim for something colorful at all meals 3. Aim for 3 food groups at each meal 4. Practice building one week of meals to help take out the guess work Thank you Mojgan Wall MS RD LD Activity Goals: Today I met with Verónica Alonso and her Mom Mignon to discuss fitness goals. During this time we talked about reasons for being active and came up with some ideas that Verónica Alonso can try. Together, we came up with this goal: Verónica will either walk or swim 3-4 times per day, and occasionally do some workout videos with her Mom. Verónica said that she is about an 8 on the change scale, very ready to do this. Things that might get in the way are: weather, but we have a plan to swim or do exercise videos on those days. If I get stuck or struggle, I will: remember that tomorrow is another chance to start again, and tonot get discouraged. We agreed to discuss struggles and successes at our next appointment. Thank you for the opportunity to participate in your care. Wilian Montoya RN documented in this encounter Progress Notes * Mojgan Wall RD - 10/25/2016 11:30 AM EDT [facility] Nutrition Note Assessment/Nutrition Diagnosis: Pt at nutritional risk r/t excessive caloric intake and sub optimalphysical activity as evidenced by BMI and diet recall Weight Today: Weight stable x 1 month Vitals 10/25/2016 09/27/2016 Height ([place]) 5' 5.157 5' 5.157 Height (Metric) 165.5 cm 165.5 cm Weight ([place]) 343 lbs 1 oz 343 lbs 4 oz Weight (Metric) 155.6 kg 155.7 kg BODY MASS INDEX 56.81 kg/m2 56.85 kg/m2 Dietary Recall: Breakfast: Woke up late at a friends house - fruit and 1 waffle AM Snack: Lunch: skipped because woke up late After School Snack: Dinner: pasta with red sauce 1 1/2 cups pasta PM Snack: Nutrition Topic: Building a Healthy Balanced Plate Interview: Verónica has just completed her [employer] year and is feeling the stress of planning for being in college and how she will afford college and bills and food. Mom assured Verónica that she will not be alone in managing all of this and she will be supported. Discussed meal planning for success. Goals bellow: Previous Nutrition Goals: 1. Aim for zero sweetened beverages: ways to success discussed are: 1 16 ounces half and half (sweet tea), may have 1 artificially sweetened beverage per day and aim for zero juice and chocolate milk at school - met 2. Half the plate veggies at dinner - will continue to work towards this goal 3. Small after school snack of fruits and veggies - not met as of today's visit - will readdress atfollow up 4. If having one treat food per day - should be no more than 160 calories of sugary goodness - found some fruit and nut bars for a healthy snack ~ 120 calories 8/10 confidence that these goals can be met Nutrition Goals set Today: 1. Aim for protein at all meals - beans and eggs 2. Aim for something colorful at all meals 3. Aim for 3 food groups at each meal 4. Practice building one week of meals to help take out the guess work Monitor/Evaluate: Will follow up in one month for nutrition education on: Class Topic: #2 - Reading Food Labels and Finding the Added Sugar in your Foods Pt will aim for: weight loss x 2# per week Will review goals and barriers/success for diet and lifestyle change Thank you Mojgan Wall MS ANGIE LD 30 minutes were spent in face to face contact with this patient today documented in this encounter Plan of Treatment Not on file documented as of this encounter Visit Diagnoses Diagnosis Dietary counseling and surveillance Dietary surveillance and counseling documented in this encounter Care Teams Respiratory Care Program Director Relationship Specialty Start Date End Date Clive Simpson [place] [address] PCP - General Pediatrics 09/27/16 10/04/21 documented as of this encounter
--- OUTSIDE RECORDS SUMMARY | 2024-03-06 18:44 | XMS_ITS | Encounter Summary ---
Author Organization [facility] [place] [address] Care Team Providers Care Patent Solicitor Name Role Phone Clive Simpson MD Primary Care Provider [phone] Reason for Visit * Reason Comments Weight Management * Consultation (Routine) - Specialty Diagnoses / Procedures Referred By Opal lin Referred To Contact Weight and Wellness Diagnoses BMI pediatric greater than 99% for age Lisa Arndt MD [address] [place] [phone] [facility] [address] [place] [address] Referral ID Status Reason Start Date Expiration Date V isits Requested Visits Authorized [id number] [facility] Consult, Test & Treat PCP Updated and/or Approved 08/08/2016 08/08/2017 6 6 Encounter Details Date Type Department Care Team (Late st Contact Info) Description 09/27/2016 9:45 AM EDT Office Visit Weight and Wellness at [facility] [address] [place] [address] Armando Rodrigues MD [address] [place] [address] [place] [address] Mojgan Domingo I, [facility] [place] [address] Insulin resistance; Abdominal obesity; BMI (body mass index) pediatric, > 99% for age, obese child, tertiary care intervention; Childhood obesity, BMI 95-100 percentile; Sedentary lifestyle Social History Tobacco Use Types Packs/Day Years Used Date Smoking Tobacco: Never Sex and Gender Information Value Date Recorded Sex Assigned at Not on file Gender Identity Not on file Sexual Orientation Not on file documented as of this encounter Last Filed Vital Signs Vital Sign Reading Time Taken Comments Blood Pressure 144/99 09/27/2016 9:59 AM EDT Pulse 72 09/27/2016 9:59 AM EDT Temperature - - Respiratory Rate 16 09/27/2016 9:59 AM EDT Oxygen Saturation 100% 09/27/2016 9:59 AM EDT Inhaled Oxygen Concentration - - Weight 155.7 kg (343 lb 4.1 oz) 09/27/2016 9:59 AM EDT Height 165.5 cm (5' 5.16) 09/27/2016 9:59 AM ED T Body Mass Index 56.85 09/27/2016 9:59 AM EDT Body Mass Index Percentile 100.00% 09/27/2016 9:5 9 AM EDT Growth Chart: CDC (Girls, 2- 20 Years) documented in this encounter Patient Instructions * Patient Instructions* Wilian Montoya, RN - 09/27/2016 9:45 AM EDT [facility] Thank you for participating in the [facility]. The goal of the [facility] is to help children and their [...] your final goals Specific goals set today: Media: Activity: Diet: 1. Aim for zero sweetened beverages: ways to success discussed are: 1 16 ounces half and half (sweet tea), may have 1 artificially sweetened beverage per day and aim for zero juice and chocolate milk at school 2. Half the plate veggies at dinner 3. Small after school snack of fruits and veggies 4. If having one treat food per day - should be no more than 160 calories of sugary goodness 12/29 confidence that these goals can be met Thank you Mojgan Wall MS RD LD Other issues addressed today: 1. Johnathon Alonso is at risk for complications of elevated BMI including diabetes, fatty liver and metabolic syndrome.The primarily treatment approach is lifestyle modification to optimize diet and physical activity. We have recommended participation in our intensive lifestyle program along with ongoing medical management. Laboratories have been ordered: No orders of the defined types were placed in this encounter. Measurements taken today: There is no immunization history on file for this patient. There were no vitals filed for this visit. There is no height or weight on file to calculate BMI. No height and weight on file for this encounter. No blood pressure reading on file for this encounter. BP: ()/() BP Readings from Last 3 Encounters: No data found for BP No blood pressure reading on file for this encounter. Thank you for allowing me to participate in your child's care. We look forward to seeing you and Johnathon at our next visit. Gallo Kevin MD MPH Armando Rodrigues MD Co-Directors, [facility] Obesity Medicine Certified Mojgan Wall MS RD LD Registered Dietitian [facility] [employer]ue Lining Stitcher Wilian Montoya RN Registered Nurse documented in this encounter Progress Notes * Armando Rodrigues MD - 09/27/2016 9:45 AM EDT Chief Complaint Patient presents with ??? Weight Management Johnathon Alonso is a 16 y.o. 2 m.o. female who is seen in the [facility] at the request of Clive Simpson MD for advice regarding obesity and metabolic abnormalities. The history was obtained from Johnathon and her mother. History: Her parents want Johnathon to lose weight to prevent future complications. Johnathon has had rapid weight gain for many years. She would like help with lifestyle modifications. Johnathon is generally sedentary most of the year. In the summer, will play some golf and do some skeet shooting. She goes through periods of eating late at night. Symptoms evaluation: Sleep problems: daytime tiredness/not refreshed in AM? No morning awakening difficulties? No difficulties falling/staying asleep? No snoring/loud breathing/mouth breathing? No Breathing difficulties: Shortness of breath? no GERD symptoms: Dyspepsia? On occasion Orthopedics issues: Back, knee, ankle pain? none Depression Denies Menstrual Issues: menorhalgia Smoking: No Drink alcohol: No Use elicit drugs: No Preliminary diet evaluation: 3 day diet record not completed for office visit. No picky. Lots of snacking on carb foods. The patient questionnaire was reviewed by myself with her mother. Immunizations: up to date per family Outpatient Prescriptions Marked as Taking for the 09/27/16 encounter (Office Visit) with Sharmin Rodrigues MD Medication Sig Dispense Refill ??? norgestimate-ethinyl estradiol (SPRINTEC-28) 0.25-35 mg-mcg Tablet Take 1 tablet by mouth daily. Indications: Contraception Past Medical History: Diagnosis Date ??? Menorrhalgia History reviewed. No pertinent surgical history. Social History Narrative Lives with parents and younger brother In grade 11. Family History Problem Relation Age of Onset ??? Obesity Mother ??? Polycystic Ovarian Syndrome Maternal Aunt ??? Thyroid Disease Maternal Grandmother ??? Hyperlipidemia Maternal Grandfather ??? Coronary Artery Disease Paternal Grandfather ??? Type 2 Diabetes Neg Hx ??? Pre-diabetes Neg Hx ??? Nonalcoholic Liver Disease Neg Hx ??? Cirrhosis Neg Hx I reviewed the medical records available. No pertinent labs to review: ROS: All other systems were reviewed and are negative. Physical Exam: In no distress. Good affect. Alert and active. Obese face and abdomen Blood pressure (!) 144/99, pulse 72, resp. rate 16, height 165.5 cm (5' 5.16), weight (!) 155.7 kg(343 lb 4.1 oz), SpO2 100 %. >99 %ile based on CDC 2-20 Years [id number] data using vitals from 09/27/2016. 65 %ile based on CDC 2-20 Years [id number] data using vitals from 09/27/2016. Body mass index is 56.85 kg/(m^2). >99 %ile based on CDC 2-20 Years BMI-for-age data using vitals from 09/27/2016. Blood pressure percentiles are >99 % systolic and >99 % diastolic based on NHBPEP's 4th Report. Blood pressure percentile targets: 90: 126/81, 95: 130/85, 99 + 5 mmH/97. Waist circumference is >90th percentile for age Head and Neck : supple neck, no goiter, slight buffalo hump, throat moist, normal tonsils, normal dentition. Eyes: pupils equal and reactive to light, extra ocular movement are normal. Chest: clear bilaterally, no crackles, no wheezes. CVS: normal S1,S2 heart sounds, no murmurs, peripheral pulses palpable, capillary refill<2 seconds. Abdomen: soft, non tender, no organomegaly, no masses appreciated, normal BS Skin:acanthosis nigricans noted in abdominal skin folds, some stria on abdomen, no hirsutism on face and chest, not much acne. Sexual maturity: Kilo 5. Neuro: CN 2-12 grossly intact, normal tone and strength in all four extremities, DTR 2+ at knees bilaterally. Musculoskeletal: no hip or knee tenderness, normal gait, no foot tenderness, no edema noted. Impression and Plan: 1. Insulin resistance 2. Abdominal obesity 3. BMI (body mass index) pediatric, > 99% for age, obese child, tertiary care intervention 4. Childhood obesity, BMI 95-100 percentile 5. Sedentary lifestyle I am very concerned with Johnathon today. She has insulin resistance. We discussed the implications ofnot treating. I discussed the longterm healthy risk of developing diabetes and significant cardiovascular disease early in life. We did discuss that most co-morbidities of obesity are reversible with improvement in life style: making better food choices, portion control, increasing activity time and intensity. Today Johnathon hasbeen evaluated by our management trainer. Information for parents to read was given about nutrition and possible modifications. Will work mostly on controlling carbohydrate consumption. Avoid refined carbs: white rice, white flour products like white bread, bagels, araceli chips, crackers, pasta, couscous, and avoid white potatoes. Desert should be fruit - not a backed good. No need for a starch at diner. Try introducing squash, beans, lentils, quinoa, spaghetti squash instead of potatoes, pasta, or rice. Avoid sugar jammie drinks. Discussed exercise goal of at least 60 minutes of moderate to vigorous physical activity per day; however, will start with a consistent daily time of 10 minutes and increase slowly as physical fitness improves. Given the progressive walking program to use. Limit TV/video/computer (screen time) to < 2 hours a day. Laboratories have been ordered: Orders Placed This Encounter Procedures ??? US Abdomen Complete ??? Alanine Aminotransferase ??? Ferritin ??? Lipid Panel ??? Hemoglobin A1c ??? T4 Total ??? TSH ??? Vitamin D, 25-Hydroxy ??? Glucose, random I will continue to follow Johnathon along with you. I will see her in the office in 12 weeks. Thank you for allowing me to participate in Johnathon care. Labs today: all unremarkable. Component Latest Ref Rng & Units 09/27/2016 Chol, Total <=239 mg/dL 161 Triglycerides <=199 mg/dL 174 HDL >=40 mg/dL 60 LDL Cholesterol <=190 mg/dL 66 Chol/HDL Ratio ratio 2.7 Lipid Interpretation See Note Hemoglobin A1C 4.3 - 5.6 % 5.4 Est Avg Gluc mg/dL See note ALT 0 - 25 unit/L 21 T4, total 5.1 - 10.8 mcg/dL 7.8 TSH 0.27 - 4.20 mcIU/mL 2.69 Glucose Lvl 65 - 199 mg/dL 89 . * Mojgan Wall I, RD - 09/27/2016 9:45 AM EDT [facility] Nutrition Note Assessment/Nutrition Diagnosis: Pt at nutritional risk r/t excessive caloric intake and sub optimalphysical activity as evidenced by BMI and diet recall Vitals 09/27/2016 Height (Burundian) 5' 5.157 Height (Metric) 165.5 cm Weight (Burundian) 343 lbs 4 oz Weight (Metric) 155.7 kg BODY MASS INDEX 56.85 kg/m2 Dietary Recall: Breakfast: 1/2 cup frozen fruit, 1 cup vanilla polish yogurt whole handful spinach and 2 tablespoons, 1/2 almond sweetened AM Snack: Lunch: pasta with red sauce and FF or sandwich with honey mustard, vallejo, lettuce and tomato on wheat with salad and cottage cheese; water or chocolate milk or OJ 16.9 ounces After School Snack:fruit gummies, chips or crackers with cheese and pepperoni or chocolate treat Dinner: 3-4 ounces BBQ with 1/2 cup noodle packet; 16 ounces PM Snack: Typical Beverages: ~ 64-80 ounces of sweet tea, 16 ounces of OJ and one chocolate milk most days Diet Assessment: excessive caloric intake from sugar-sweetened beverages - 1,200-1600 calories daily Initial Nutrition Topic: 1. Decreasing Sugar Sweetened Beverages- limit sweet drinks / choose water instead. Whole fruit is a better choice than fruit juice Nutrition Goals set Today: 1. Aim for zero sweetened beverages: ways to success discussed are: 1 16 ounces half and half (sweet tea), may have 1 artificially sweetened beverage per day and aim for zero juice and chocolate milk at school 2. Half the plate veggies at dinner 3. Small after school snack of fruits and veggies 4. If having one treat food per day - should be no more than 160 calories of sugary goodness 8/10 confidence that these goals can be met Monitor/Evaluate: Will follow up in one month for nutrition education on: Class Topic: Building a Healthy Plate Pt will aim for weight maintenance/loss for: up to 2# per week r/t BMI %ile, age and current weight Will review goals and barriers/success for diet and lifestyle change Thank you Mojgan Wall MS, RD LD 30 minutes were spent in face to face contact with this patient today * Armando Rodrigues MD - 09/27/2016 9:45 AM EDT RESEARCH STUDY VISIT Establishment of the Pediatric Obesity Weight Evaluation Registry (POWER): A prospective engine pilot project of children and adolescents presenting for weight management [place]: [id number] PI: Drs. Armando Rodrigues and Gallo Kevin I met with Johnathon and her mother to talk about the above referenced study. I went over the consent form in detail with Johnathon and her mother, and confirmed eligibility and legal guardianship. After answering their questions, her mother signed and dated the consent form [along with Johnathon] in my presence. They were given a copy of the signed and dated consent form for their records. Johnathon and her motehr were encouraged to contact Dr. Armando Rodrigues or Dr. Kevin at the number provided should any questions arise. documented in this encounter Plan of Treatment Not on file documented as of this encounter Procedures Procedure Name Priority Date/Time Associated Diagnosis Comments VITAMIN D, 25-HYDROXY Routine 09/27/2016 12:37 PM EDT Insulin resistance Abdominal obesity BMI (body mass index) pediatric, > 99% for age, obese child, tertiary care intervention Childhood obesity, BMI 95-100 percentile Sedentary lifestyle ALANINE AMINOTRANSFERASE Routine 017 12:37 PM EDT Insulin resistance Abdominal obesity BMI (body mass index) pediatric, > 99% for age, obese child, tertiary care intervention Childhood obesity, BMI 95-100 percentile Sedentary lifestyle TSH Routine 09/27/2016 12:37 PM EDT Insulin resistance Abdominal obesity BMI (body mass index) pediatric, > 99% for age, obese child, tertiary care intervention Childhood obesity, BMI 95-100 percentile Sedentary lifestyle T4 TOTAL Routine 09/27/2016 12:37 PM EDT Insulin resistance Abdominal obesity BMI (body mass index) pediatric, > 99% for age, obese child, tertiary care intervention Childhood obesity, BMI 95-100 percentile Sedentary lifestyle HEMOGLOBIN A1C Routine 09/27/2016 12:37 PM EDT Insulin resistance Abdominal obesity BMI (body mass index) pediatric, > 99% for age, obese child, tertiary care intervention Childhood obesity, BMI 95-100 percentile Sedentary lifestyle GLUCOSE Routine 09/27/2016 12:37 PM EDT Insulin resistance Abdominal obesity BMI (body mass index) pediatric, > 99% for age, obese child, tertiary care intervention Childhood obesity, BMI 95-100 percentile Sedentary lifestyle FERRITIN Routine 09/27/2016 12:37 PM EDT Insulin resistance Abdominal obesity BMI (body mass index) pediatric, > 99% for age, obese child, tertiary care intervention Childhood obesity, BMI 95-100 percentile Sedentary lifestyle LIPID PANEL (REFLEX DIRECT LDL) Routine 09/27/2016 [...] 11:24 am) PATIENT INFO: ID #: ? [id number] ?: ??[birth year] (16 yrs) Name: ? JOHNATHON ALONSO ? Visit Date: 10/25/2016 10:32 am PERFORMED BY: Performed By: ? Sakina Spence RDMS Attending: ?AlfonsoQuita barton MD Referred By: ?ARMANDO Lazaro RAVI Location: ? [place] SERVICE(S) PROVIDED: ??UABDC - Abdominal Complete Survey - [id number] INDICATIONS: ??fatty liver Scan Quality: ?? Limited [...] 10/25/2016 11:24 am) PATIENT INFO: ID #: [id number] : [birth year] (16 yrs) Name: JOHNATHON ALONSO Visit Date: 10/25/2016 10:32 am PERFORMED BY: Performed By: Sakina Spence RDMS Attending: Quita Hamilton MD Referred By: ARMANDO RODRIGUES Location: [place] SERVICE(S) PROVIDED: [facility] - Abdominal Complete Survey - [id number] INDICATIONS: fatty liver Scan Quality: Limited due [...] Signed Final Report 10/25/2016 11:24 am Armando Rodrigues MD IMG US GEN ORDERABLE S * Glucose, random (09/27/2016 12:37 PM EDT) Glucose 89 65 - 199 mg/dL [facility] Comment:Diabetes: >=200 mg/d L plus symptoms Blood specimen (specimen) 09/27/2016 12:37 PM EDT 09/27/2016 3:28 PM EDT Narrative Resulting Agency Comment Spec In Lab Armando Rodrigues MD CHEMISTRY ORDERABLES [facility] [place] [address] * (ABNORMAL) Vitamin D, 25-Hydroxy (09/27/2016 12:37 PM EDT) Vitamin D Total 25 OH 28(L) 30 - 100 ng/mL [facility] Comment: Deficient <10 ng/mL Insufficient 10 to 29 ng/mL Sufficient 30 to 100 ng/mL Potential Intoxication >100 ng/mL According to the US National Osteoporosis Foundation, Vitamin D concentrations >30 ng/mL are sufficient to protect bone health. ??The National Kidney Foundation has similarly stated that patients with Vitamin D concentrations <30ng/mL should be considered to be insufficient or deficient. http://[employer].com/nkf-guidelines http://[employer].com/nejm-VitD The IDS iSYS Vitamin D Immunoassay detects both 25-OH Vitamin D2 and 25-OH Vitamin D3, but only a total Vitamin D concentration is reported. Blood specimen (specimen) 09/27/2016 12:37 PM EDT 09/28/2016 7:11 AM EDT Narrative Resulting Agency Comment Spec In Lab Armando Rodrigues MD CHEMISTRY ORDERABLES Performing Organization Address [facility] de Phone Number [facility] [place] [address] * TSH (09/27/2016 12:37 PM EDT) [facility] Thyroid Stimulating Hormone 2.69 0.27 - 4.20 mcIU/mL [facility] Blood specimen (specimen) 09/27/2016 12:37 PM EDT 09/27/2016 3:28 PM EDT Narrative Resulting Agency Comment Spec In Lab Armando Rodrigues MD CHEMISTRY ORDERABLES Performing Organization Address [facility] de Phone Number [facility] [place] [address] * T4 Total (09/27/2016 12:37 PM EDT) [facility] T4 Total 7.8 5.1 - 10.8 mcg/dL [facility] Comment: Reference Range: [place] Blood: ??6.9-14.4 mcg/dL Females: ??7.2-14.2 mcg/dL Pediatric ranges: ??Interpret with caution-ranges have not been verified Blood specimen (specimen) 09/27/2016 12:37 PM EDT 09/27/2016 3:28 PM EDT Narrative Resulting Agency Comment Spec In Lab Armando Rodrigues MD CHEMISTRY ORDERABLES Performing Organization Address [facility] Co de Phone Number [facility] [place] [address] * Hemoglobin A1c (09/27/2016 12:37 PM EDT) [facility] Hemoglobin A1c 5.4 4.3 - 5.6 % [facility] Comment: Reference Range: 4.3 - 5.6% 5.7 - 6.4% - Increased Risk of Developing Diabetes Mellitus >= 6.5% - Consistent with diagnosis of Diabetes Mellitus In the absence of hyperglycemia (i.e. plasma glucose > 200 mg/dL) or classic symptoms of hyperglycemia a repeat measurement of HbA1c should be performed on a separate sample to confirm the diagnosis. Diagnosis and Classification of Diabetes Mellitus, Diabetes Care 2013; 36: Suppl. 1, S67-74 Estimated Average Glucose See note mg/dL [facility] Comment: Estimated Average Glucose not appropriate for patients under 18 years of age. eAG equivalents for HbA1c percentages: HbA1c(%) ?eAG(mg/dL) 6.0 ?126 6.5 ?140 7.0 ?154 7.5 ?169 8.0 ?183 8.5 ?197 9.0 ?212 9.5 ?226 10.0 ? 240 Limitations: The eAG calculation has not been validated on women, individuals below 18 years old and above 70 years old, and individuals with hemoglobinopathies. Additional resources are available on the ADA website. Amol MASON, Nicolás J, Marisel R, et al. ??Translating the A1C assay into estimated average glucose values. ??Diabetes Care 2008:31(8):3756-8346. Blood specimen (specimen) 09/27/2016 12:37 PM EDT 09/27/2016 3:28 PM EDT Narrative Resulting Agency Comment Spec In Lab Armando Rodrigues MD CHEMISTRY ORDERABLES [facility] [place] [address] * Lipid Panel (09/27/2016 12:37 PM EDT) [facility] Signature Cholesterol, Total 161 <=239 mg/dL [facility] Triglyceride 174 <=199 mg/dL [facility] HDL Cholesterol 60 >=40 mg/dL [facility] LDL Cholesterol 66 <=190 mg/dL [facility] Cholesterol/HDL Ratio 2.7 ratio [facility] Lipid Interpretation See Note [facility] Comment: Lipid management should be guided by a patient? s ASCVD risk, goals and preferences. ACC/AHA Guidelines recommend high intensity statin if clinical ASCVD or LDL greater than or equal to 190 mg/dL. http://[employer].com/KLB-RYD-Zznvhovih Adults aged 40-75 with LDL 70-189 mg/dL should have their 10 year ASCVD risk estimated with the ACC/AHA ASCVD risk mineralogy professor http://tools.acc.org/WKYOP-Ohwz-Mbakmhbiw/ Statin should be discussed if risk greater [...] Resulting Agency Comment Spec In Lab Armando Rodrigues MD CHEMISTRY ORDERABLES [facility] [place] [address] * Ferritin (09/27/2016 12:37 PM EDT) [facility] Signature Ferritin 38 36 - 92 ng/mL [facility] Comment: Pediatric reference ranges not verified at [facility], interpret with caution. Reference ranges for females greater than 50 years of age approach values for men, i.e., 30-400 ng/mL. Blood specimen (specimen) 09/27/2016 12:37 PM EDT 09/27/2016 3:28 PM EDT Narrative Resulting Agency Comment Spec In Lab Armando Rodrigues MD CHEMISTRY ORDERABLES Performing Organization Address [facility] Co de Phone Number [facility] [place] [address] * Alanine Aminotransferase (09/27/2016 12:37 PM EDT) Alanine Aminotransferase 21 0 - 25 unit/L [facility] Blood specimen (specimen) 09/27/2016 12:37 PM EDT 09/27/2016 3:28 PM EDT Narrative Resulting Agency Comment Spec In Lab Armando Rodrigues MD CHEMISTRY ORDERABLES Performing Organization Address [facility] Co de Phone Number [facility] [place] [address] documented in this encounter Visit Diagnoses Diagnosis Insulin resistance Dysmetabolic Syndrome X Abdominal obesity Localized adiposity BMI (body mass index) pediatric, > 99% for age, obese child, tertiary care intervention Body Mass Index, pediatric, greater than or equal to 95th percentile for age Childhood obesity, BMI 95-100 percentile Obesity, unspecified Sedentary lifestyle Other specified personal history presenting hazards to health Insulin resistance Dysmetabolic Syndrome X Abdominal obesity Localized adiposity BMI (body mass index) pediatric, > 99% for age, obese child, tertiary care intervention Body Mass Index, pediatric, greater than or equal to 95th percentile for age Childhood obesity, BMI 95-100 percentile Obesity, unspecified Sedentary lifestyle Other specified personal history presenting hazards to health documented in this encounter Care Teams Patent Solicitor Relationship Specialty Start Date End Date Clive Simpson MD [address] [place] [address] PCP - General Pediatrics 09/27/16 10/04/21 documented as of this encounter
--- OUTSIDE RECORDS SUMMARY | 2024-03-06 18:44 | XMS_ITS | Encounter Summary ---
[place] [address] Care Team Providers Care Hog Dropper Name Role Phone Viv Pedraza APRN Primary Care Provider [phone] Reason for Referral * Consultation (Routine) - Closed Specialty Diagnoses / Procedures Referred By Opal lin Referred To Contact Bariatrics Diagnoses Other specified counseling WEIGHT LOSS COUNSELING Viv Pedraza APRN [address] [place] [address] [facility] [address] [place] [id number] Referral ID Status Reason Start Date Expiration Date V isits Requested Visits Authorized [id number] Closed Consult, Test & Treat PCP Updated and/or Approved 12/22/2022 12/22/2023 12 12 Encounter Details Date Type Department Care Team (Latest Contact Info) Description 12/22/2022 Transcribe Orders eDH Incoming Referrals [phone] Viv Pedraza APRN [address] [place], [place] [id number] Other specified counseling Social History Tobacco Use Types Packs/Day Years Used Date Smoking Tobacco: Never Sex and Gender Information Value Date Recorded Sex Assigned at Not on file Gender Identity Not on file Sexual Orientation Not on file documented as of this encounter Plan of Treatment Scheduled Referrals Name Type Priority Associated Diagnoses Orde r Schedule Referral to Bariatric Surgery Program Outpatient Referral Routine Other specified counseling Ordered: 12/22/2022 documented as of this encounter Visit Diagnoses Diagnosis Other specified counseling documented in this encounter Care Teams Hog Dropper Relationship Specialty Start Date End Date Viv Ped[place] [address] PCP - General Family Medicine 12/22/22 documented as of this encounter
--- OUTSIDE RECORDS SUMMARY | 2024-03-06 18:44 | XMS_ITS | Encounter Summary ---
Author Organization [facility] Address [address] [place] [address] Care Team Providers Care Mold Breaker Name Role Phone Unavailable Primary Care Provider Unavailabl e Encounter Details Date Type Department Care Team (Late st Contact Info) Description 11/29/2023 Lab Requisition [facility] [address] [place] [address] Outr Resulting Lab, Provider Social History Tobacco [...] Comments CHLAMYDIA/N. GONORRHOEAE AMPLIFIED NUCLEIC ACID Routine 11/29/2023 8:40 EDT documented in this encounter Results * CHLAMYDIA/N. GONORRHOEAE AMPLIFIED NUCLEIC ACID (11/29/2023 8:40 EDT) Neisseria gonorrhoeae Result Negative Negative 11/30/2023 12:42 EDT [facility] Chlamydia trachomatis Result Negative Negative 11/30/2023 12:42 EDT [facility] Swab VAGINAL STRUCTURE / Unknown 11/29/2023 8:40 EDT 11/29/2023 21:50 EDT Provider Outr Resulting Lab MICROBIOLOGY - GENERAL ORDERABLES [facility] [address] [place] [address] documented in this encounter Visit Diagnoses Not on filedocumented in this encounter
--- OUTSIDE RECORDS SUMMARY | 2024-03-06 18:44 | XMS_ITS | Encounter Summary ---
[place] [address] Care Team Providers Care Waxer Name Role Phone Viv Pedraza APRN Primary Care Provider [phone] Encounter Details Date Type Department Care Team (Late st Contact Info) Description 01/09/2023 4:00 PM EDT Notes [place] [address] Social History Tobacco Use Types Packs/Day Years Used Date Smoking Tobacco: Never Sex and Gender Information Value Date Recorded Sex Assigned at Not on file Gender Identity Not on file Sexual Orientation Not on file documented as of this encounter Progress Notes * Ignacia Santillan - 01/09/2023 4:00 PM EDT PATIENT ATTENDED THE INTRO TO BARIATRIC SURGERY ON 2022 FOR THE [facility] PROGRAM * Ignacia Santillan - 01/09/2023 4:00 PM EDT CORRECTION PATIENT ATTENDED THE INTRO TO BARIATRIC SURGERY ON JANUARY 09, 2023 FOR THE [facility] PROGRAM documented in this encounter Plan of Treatment Not on file documented as of this encounter Visit Diagnoses Not on filedocumented in this encounter Care Teams Waxer Relationship Specialty Start Date End Date Viv Pedraza APRN [facility] [address] [place], [place] [phone] PCP - General Family Medicine 12/22/22 documented as of this encounter
[2024-03-06] MEDS: Normal Saline - Diluent 50 ML VIAL IJ (19:03)
[2024-03-06 20:25] LABS: Lactate 1.1 mmol/L (0.6-1.4)
[2024-03-06 20:26] LABS: Abs Immature Grans 0.04 10^3/uL (0.0-0.06); Absolute Basophil Count 0.05 10^3/uL (0.0-0.2); Absolute Eosinophil Count 0.15 10^3/uL (0.0-0.7); Absolute Lymphocyte Count 2.67 10^3/uL (1.2-3.4); Absolute Monocyte Count 0.84 10^3/uL (0.1-0.8); Absolute Neutrophil Count 5.57 10^3/uL (1.2-6.7); Basophils % 0.5 %; Eosinophils % 1.6 %; HGB 12.1 g/dL (11.2-15.7); Immature Grans % 0.4 %; Lymphocytes % 28.6 %; MCH 27.2 pg (27.0-33.0); MCHC 31.8 % (32.0-36.0); MCV 85 fL (80-95); MPV 9.6 fL (8.0-11.0); Neutrophils % 59.9 %; Platelet Count 331 10^3/uL (130-400); RBC 4.45 10^6/uL (3.93-5.22); RDW 14.5 % (11.7-14.6); RDW-SD 45.2 fL; WBC 9.32 10^3/uL (4.4-10.8)
[2024-03-06] MEDS: Ketorolac 15 MG/ML VIAL IVP (20:28)
[2024-03-06] MEDS: ACETAMINOPHEN 1,000 MG/100 ML BTL 400 MG IVPB (20:28)
[2024-03-06 20:46] LABS: ALT 37 U/L (14-59); AST 34 U/L (15-37); Albumin 2.9 g/dL (3.4-5.0); Alkaline Phosphatase 60 U/L (46-116); Anion Gap 8.1 mmol/L (3-11); BUN 9 mg/dL (7-18); Bilirubin, Total 0.52 mg/dL (0.2-1.0); CO2 24.9 mmol/L (21.0-32.0); CREATININE 0.6 mg/dL (0.55-1.02); Calcium 8.5 mg/dL (8.5-10.1); Chloride 107 mmol/L (98-107); Estimated GFR 128.46 (mL/min/1.73m2); Glucose 88 mg/dL (74-106); Lipase 22 U/L (16-77); Potassium 4.4 mmol/L (3.5-5.1); Sodium 140 mmol/L (136-145); Total Protein 7.3 g/dL (6.4-8.2)
[2024-03-06] MEDS: Omnipaque 350 MG/ML 100 ML BTL IJ (21:16)
[2024-03-06 21:20] LABS: Procalcitonin < 0.1 ng/mL
--- NOTE | 2024-03-06 21:46 | DI.VRAD_ITS ---
PROCEDURE INFORMATION: Exam: CT Abdomen And Pelvis With Contrast Exam date and time: 03/06/2024 9:14 PM Age: 23 years old Clinical indication: Other: Exquisite lower abdominal pain TECHNIQUE: Imaging protocol: Computed tomography of the abdomen and pelvis with contrast. Contrast material: OMNI 350; Contrast volume: 100 ml; Contrast route: INTRAVENOUS (IV); COMPARISON: US ABDOMEN 08/25/2022 3:01 PM FINDINGS: Limitations: Examination degraded by diffuse technical artifact. Low [id number] ratio with limited resolution. Lungs: Lung bases clear. Liver: Liver largely obscured by artifact but grossly unremarkable, as seen. Gallbladder and biliary ducts: Gallbladder largely obscured by artifact but grossly moderately distended. Within the limits of visualization, no calcified gallstones or biliary dilatation. Pancreas: Pancreas partially obscured by artifact but grossly unremarkable, as seen. Spleen: Spleen partially obscured by artifact but grossly unremarkable, as seen. Adrenal glands: Adrenal glands partially obscured but grossly unremarkable, as seen. Kidneys and ureters: Kidneys largely obscured by artifact but grossly unremarkable, as seen. No hydronephrosis or ureterectasis. Within the limits of the exam, no distally obstructing ureteral stones demonstrated. Stomach and bowel: No oral contrast. Stomach partially decompressed. No small bowel dilatation to suggest obstruction. Normal-appearing colon. No evidence of diverticulitis or colitis. Appendix: Appendix partially obscured but normal in caliber and appearance through its visualized portion. Intraperitoneal space: Trace fluid in the deep pelvis. No free air. Vasculature: Normal caliber abdominal aorta. Normal-appearing right-sided inferior vena cava. 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 Lymph nodes: No pathologically enlarged mesenteric, retroperitoneal, or pelvic sidewall lymph nodes. Urinary bladder: Urinary bladder partially obscured by artifact but grossly unremarkable, as seen. Reproductive: Anteverted uterus, partially obscured by artifact but normal in size. T-shaped intrauterine device in-situ. Left ovary partially obscured by artifact but normal in size. Right ovary not identified, obscured if present. Correlation with surgical history recommended. Bones/joints: No acute fracture seen among the bones of the abdomen or pelvis. Soft tissues: Small fat containing ventral hernia at the umbilicus. IMPRESSION: 1. Technically limited exam. 2. No acute bowel pathology demonstrated. 3. Small amount of free fluid in the deep pelvis in the cul-de-sac of Anand and along the right pelvic sidewall, nonspecific. Right ovary not confidently identified, obscured if present. No right adnexal mass seen. Grossly normal-appearing left ovary. Dictated and Authenticated by: Ishan Chambers MD. Ordering:RUSTY Parkinson MD
[2024-03-06 21:55] LABS: Bilirubin Negative (Negative); Blood Negative (Negative); Clarity Clear (Clear); Glucose Negative (Negative); Ketones Negative (Negative); Leukocyte Esterase Negative (Negative); Nitrite Positive (Negative); Specific Gravity 1.025 (1.005-1.025); Urobilinogen 0.2 mg/dL (Up to 0.2)
[2024-03-06 22:08] LABS: Bacteria Many HPF (Negative); C & S Indicated? No; Casts Negative LPF (Negative); Crystals Negative HPF (Negative); Epithelial Cells Few HPF (Negative); Mucus Negative (Negative); RBC 0-2 HPF (0-2)
[2024-03-06] MEDS: Cephalexin 500 MG CAP, 2 CAPS/BTL PO (22:27)
[2024-03-06 22:32] VITALS: BP 123/60; PULSE 80; RESP 18; TEMP 36.8; O2SAT 100
== END 2024-03-06 22:33 | disposition home or self-care (01) ==
PROVIDERS: Emergency Provider Physician Assistant
DX: R10.30 Lower abdominal pain, unspecified (principal); R11.0 Nausea; R42 Dizziness and giddiness; N39.0 Urinary tract infection, site not specified
CPT/HCPCS: 80053; 83690; 84145; 87077; 96365; 96375; 99285; 74177; 81003; 81015; 83605; 85025; 87086; 87186; 99283; J0131; J1885; J3490